=== PATIENT | female | born 1945 | race Caucasian/White ===

== ENCOUNTER 2016-10-31 07:30 | Day surgery (SDC) | payer MEDICARE ==
[2016-10-25 13:41] VITALS: BMI 23.2
[~2016-10-31 07:30] MED LIST: LACTATED RINGERS 1,000 ML IV SCH
[2016-10-31 08:08] VITALS: RESP 16; TEMP 97.9
[2016-10-31] MEDS ORDERED: LIDOCAINE 1% 20 ML VIAL (10MG/ML) FOR IV START INTRADERMA ONE (08:18)
[2016-10-31] MEDS ORDERED: PROPOFOL 10 MG/ML 20 ML VIAL IV ONE (08:43)
--- NOTE | 2016-10-31 08:54 | P.GSHP ---
History of Present Illness H&P Date: 10/31/16 Chief Complaint: Dysphagia This is a 71-year-old female who's had some issues with mild dysphagia. Patient a previous Abhi fundal plication. She has some trouble eating certain foods intermittently. She presents today for EGD with possible balloon dilatation - Constitutional Constitutional: Reports as per HPI Past Medical History Past Medical History: GERD/Reflux, Hyperlipidemia, Skin Disorder, Thyroid Disorder Additional Past Medical History / Comment(s): DIFFICULTY SWALLOWING History of Any Multi-Drug Resistant Organisms: None Reported Past Surgical History: Section, Cholecystectomy, Hysterectomy, Orthopedic Surgery Additional Past Surgical History / Comment(s): C/S x4, right rotator cuff repair , recent EGD. ABHI FUNDLOPLASTY Past Anesthesia/Blood Transfusion Reactions: No Reported Reaction Past Psychological History: No Psychological Hx Reported Smoking Status: Never smoker Past Alcohol Use History: None Reported Past Drug Use History: None Reported - Past Family History Mother Family Medical History: Cancer Brother(s) Family Medical History: Cancer Medications and Allergies Home Medications Medication Instructions Recorded Confirmed Type Hydrocortisone Cream 1 applic TOPICAL DAILY PRN 06/08/16 10/31/16 History [Hydrocortisone 2.5% Cream] Levothyroxine Sodium [Synthroid] 100 mcg PO DAILY 06/08/16 10/31/16 History cycloSPORINE [Restasis] 1 drop BOTH EYES BID 06/08/16 10/31/16 History metroNIDAZOLE 1% GEL [Metrogel 1%] 1 applicate TOPICAL DAILY PRN 06/08/16 History Allergies Allergy/AdvReac Type Severity Reaction Status Date / Time codeine AdvReac Rash/Hives Verified 10/25/16 13:34 Sulfa (Sulfonamide AdvReac Vomiting Verified 10/25/16 13:34 Antibiotics) Surgical - Exam Vital Signs Temp Pulse Resp BP Pulse Ox 97.9 F 68 16 145/74 97 10/31/16 08:06 10/31/16 08:06 10/31/16 08:06 10/31/16 08:06 10/31/16 08:06 - General well developed, no distress - Eyes PERRL - ENT normal pinna - Neck no masses - Respiratory normal expansion - Cardiovascular Rhythm: regular - Abdomen Abdomen: soft Assessment and Plan Plan: Dysphagia. We'll perform EGD with possible balloon dilatation.
--- NOTE | 2016-10-31 09:18 | P.OP ---
Date of Procedure: 10/31/16 Preoperative Diagnosis: Dysphagia Postoperative Diagnosis: Dysphagia Procedure(s) Performed: EGD Implants: Anesthesia: MAC Surgeon: Buddy Ochoa Pathology: none sent Condition: stable Disposition: PACU Indications for Procedure: Operative Findings: Description of Procedure: The patient's placed on the endoscopy table in the lateral position. She received IV sedation. The gastroscope some placed oropharynx and passed into the esophagus and into the stomach. The scope was then through the pylorus. First and second portion of duodenum. Normal. Scope was then brought back the antrum this appeared normal. Scope is retroflexed and the patient a previous fundal plication wrap which appeared to be in appropriate position. Due to the patient's symptoms of intermittent dysphagia a 20 mm balloon was placed at the level of the fundal plication wrap the balloon was held in position for 3 minutes. This was done sequentially 3 times. Scope was then withdrawn the distal esophagus appeared normal. The proximal esophagus. Normal. Scope was withdrawn for patient.
[2016-10-31 09:51] VITALS: BP 153/70; PULSE 72
== END 2016-10-31 10:32 | disposition home or self-care (01) ==
LOC: ORWHC2ENDO 07:30
PROVIDERS: ATTEND Surgery
DX: R13.10 Dysphagia, unspecified (principal); E07.9 Disorder of thyroid, unspecified; Z79.899 Other long term (current) drug therapy; Z88.2 Allergy status to sulfonamides; Z88.5 Allergy status to narcotic agent
CPT/HCPCS: 43249; J2704; C1726; 99153

== ENCOUNTER → 2016-11-13 | Outpatient (CLI) | payer MEDICARE ==
--- NOTE | 2016-11-13 10:54 | FL ---
Esophagram INDICATION: Post David, food sticking dysphasia Single contrast technique is utilized through the esophagus. Esophagus dilates to normal caliber has normal contour to the gastroesophageal junction. Post David changes are evident at the gastroesophageal junction. There is some moderate narrowing without comple te obstruction. Significant hesitancy is not identified. Tertiary contractions were during the examin ation compatible with presbyesophagus. Overhead radiographs appear unremarkable. IMPRESSIONS: 1. Presbyesophagus. 2. Post David fundoplication changes without significant obstruction. Some hesitancy passing through this region is evident however.
== END | disposition home or self-care (01) ==
LOC: RADFLWHC 08:14
PROVIDERS: ATTEND Surgery
DX: K22.8 Other specified diseases of esophagus (principal); Z98.890 Other specified postprocedural states
CPT/HCPCS: 74220

== ENCOUNTER 2016-11-21 10:44 | Day surgery (SDC) | payer MEDICARE ==
[2016-11-20 08:53] VITALS: BMI 22.8
[2016-11-21] MEDS ORDERED: LIDOCAINE 1% 20 ML VIAL (10MG/ML) FOR IV START SQ ONE (10:54)
[2016-11-21 10:58] VITALS: RESP 16; TEMP 97.7
[2016-11-21] MEDS ORDERED: LIDOCAINE 1% INJ 10MG/ML (20 ML MDV) ONE (12:17)
[2016-11-21] MEDS ORDERED: PROPOFOL 10 MG/ML 20 ML VIAL IV ONE (12:17)
--- NOTE | 2016-11-21 12:19 | P.GSHP ---
History of Present Illness H&P Date: 11/21/16 Chief Complaint: Intermittent dysphagia This a 71-year-old female referred from Dr. Chawla. Patient presents today for EGD and balloon dilatation patient has had complaints of intermittent dysphagia. She states she feels better after her last balloon dilatation. She' s had a previous Abhi fundal plication. The patient has had an upper GI which shows evidence of presbyesophagus without any obstruction of her GE junction. Past Medical History Past Medical History: GERD/Reflux, Hyperlipidemia, Skin Disorder, Thyroid Disorder Additional Past Medical History / Comment(s): DIFFICULTY SWALLOWING History of Any Multi-Drug Resistant Organisms: None Reported Past Surgical History: Section, Cholecystectomy, Hysterectomy, Orthopedic Surgery Additional Past Surgical History / Comment(s): C/S x4, right rotator cuff repair , recent EGD. ABHI FUNDLOPLASTY. EGD-10/31/16 Past Anesthesia/Blood Transfusion Reactions: No Reported Reaction Past Psychological History: No Psychological Hx Reported Smoking Status: Never smoker Past Alcohol Use History: None Reported Past Drug Use History: None Reported - Past Family History Mother Family Medical History: Cancer Brother(s) Family Medical History: Cancer Medications and Allergies Home Medications Medication Instructions Recorded Confirmed Type Hydrocortisone Cream 1 applic TOPICAL DAILY PRN 06/08/16 11/21/16 History [Hydrocortisone 2.5% Cream] Levothyroxine Sodium [Synthroid] 100 mcg PO DAILY 06/08/16 11/21/16 History cycloSPORINE [Restasis] 1 drop BOTH EYES BID 06/08/16 11/21/16 History metroNIDAZOLE 1% GEL [Metrogel 1%] 1 applicate TOPICAL DAILY PRN 06/08/16 History Allergies Allergy/AdvReac Type Severity Reaction Status Date / Time codeine AdvReac Rash/Hives Verified 11/20/16 08:47 Sulfa (Sulfonamide AdvReac Vomiting Verified 11/20/16 08:47 Antibiotics) Surgical - Exam Vital Signs Temp Pulse Resp BP Pulse Ox 97.7 F 77 16 143/78 100 11/21/16 10:57 11/21/16 10:57 11/21/16 10:57 11/21/16 10:57 11/21/16 10:57 - General well developed, no distress - Eyes PERRL - ENT normal pinna - Neck no masses - Respiratory normal expansion - Cardiovascular Rhythm: regular - Abdomen Abdomen: soft, non tender Assessment and Plan Plan: History of intermittent dysphagia. We'll perform EGD with balloon dilatation
--- NOTE | 2016-11-21 12:40 | P.OP ---
Date of Procedure: 11/21/16 Preoperative Diagnosis: Dysphagia Postoperative Diagnosis: Dysphagia Procedure(s) Performed: EGD with balloon dilatation of GE junction Anesthesia: MAC Surgeon: Buddy Ochoa Pathology: none sent Condition: stable Disposition: PACU Description of Procedure: The patient's placed on the endoscopy table in the lateral position. She received IV sedation. The gastroscope some placed oropharynx and passed into the esophagus and into the stomach. Scope was then placed through the pylorus. The first and second portion of duodenum appeared normal. The scope was then brought back the antrum and this appeared normal. Scope is retroflexed and the GE junction was visualized. The 20 mm balloon was placed across the GE junction. This was held in position for 3 minutes. No injury seen to the esophagus stomach. The balloon was then withdrawn. The scope was withdrawn. Patient top she will was sent to recovery in stable condition.
[2016-11-21 13:04] VITALS: BP 158/87; PULSE 79
== END 2016-11-21 13:28 | disposition home or self-care (01) ==
LOC: ORWHC2ENDO 10:44
PROVIDERS: ATTEND Surgery
DX: R13.10 Dysphagia, unspecified (principal); E07.9 Disorder of thyroid, unspecified; L98.9 Disorder of the skin and subcutaneous tissue, unspecified; Z79.899 Other long term (current) drug therapy
CPT/HCPCS: 43249; J2001; J2704; C1726; 99153

== ENCOUNTER 2017-01-25 08:47 | Day surgery (SDC) | payer MEDICARE ==
[2017-01-24 09:54] VITALS: BMI 22.3
[2017-01-25 09:01] VITALS: TEMP 97
[2017-01-25] MEDS ORDERED: LIDOCAINE 1% 20 ML VIAL (10MG/ML) FOR IV START INTRADERMA ONE (09:24)
[2017-01-25] MEDS ORDERED: PROPOFOL 10 MG/ML 20 ML VIAL IV ONE (10:02)
--- NOTE | 2017-01-25 10:16 | P.GSHP ---
History of Present Illness H&P Date: 01/25/17 Chief Complaint: Dysphagia This is a 71-year-old female who's had intermittent problems with dysphagia. Patient presents today for EGD with possible balloon dilatation. She's had a previous balloon dilatation which did help her dysphagia. Past Medical History Past Medical History: GERD/Reflux, Hyperlipidemia, Skin Disorder, Thyroid Disorder Additional Past Medical History / Comment(s): Rosacea. DIFFICULTY SWALLOWING History of Any Multi-Drug Resistant Organisms: None Reported Past Surgical History: Section, Cholecystectomy, Hysterectomy, Orthopedic Surgery Additional Past Surgical History / Comment(s): C/S x4, right rotator cuff repair , recent EGD. ABHI [id number]. EGD-10/31/16 with dilatation Past Anesthesia/Blood Transfusion Reactions: No Reported Reaction Past Psychological History: No Psychological Hx Reported Smoking Status: Never smoker Past Alcohol Use History: None Reported Past Drug Use History: None Reported - Past Family History Mother Family Medical History: Cancer Brother(s) Family Medical History: Cancer Medications and Allergies Home Medications Medication Instructions Recorded Confirmed Type Hydrocortisone Cream 1 applic TOPICAL DAILY PRN 06/08/16 01/24/17 History [Hydrocortisone 2.5% Cream] Levothyroxine Sodium [Synthroid] 100 mcg PO QAM 06/08/16 01/24/17 History cycloSPORINE [Restasis] 1 drop BOTH EYES BID 06/08/16 01/24/17 History metroNIDAZOLE 1% GEL [Metrogel 1%] 1 applicate TOPICAL DAILY PRN 06/08/16 History Allergies Allergy/AdvReac Type Severity Reaction Status Date / Time codeine Allergy Rash/Hives Verified 01/25/17 08:52 Sulfa (Sulfonamide AdvReac Vomiting Verified 01/25/17 08:52 Antibiotics) Surgical - Exam Vital Signs Temp Pulse Resp BP Pulse Ox 97.0 F L 62 16 121/75 98 01/25/17 09:00 01/25/17 09:00 01/25/17 09:00 01/25/17 09:00 01/25/17 09:00 - General well developed, no distress - Eyes PERRL - ENT normal pinna - Neck no masses - Respiratory normal expansion - Cardiovascular Rhythm: regular - Abdomen Abdomen: soft, non tender Assessment and Plan Plan: Dysphagia. We'll perform EGD with balloon dilation.
--- NOTE | 2017-01-25 10:34 | P.OP ---
Date of Procedure: 01/25/17 Preoperative Diagnosis: Dysphagia Postoperative Diagnosis: Dysphagia Procedure(s) Performed: EGD with balloon dilatation of GE junction Anesthesia: MAC Surgeon: Buddy Ochoa Pathology: none sent Condition: stable Disposition: PACU Description of Procedure: The patient's placed on the endoscopy table in the lateral position. She received IV sedation. The gastroscope placed oropharynx passed into the esophagus and into the stomach. The scope was then placed through the pylorus. The first and second portion of the duodenum appeared normal. The scope was then brought back the antrum this appeared normal. The scope was then retroflexed and there was no evidence of a hiatal hernia. At the GE junction a 20 mm balloon was placed and this was dilated and held in position for 3 minutes. This was done sequentially 3 times. The distal esophagus. Normal. The proximal esophagus. Normal. Scope was then withdrawn from patient.
[2017-01-25 11:51] VITALS: BP 138/84; PULSE 60; RESP 16
== END 2017-01-25 11:49 | disposition home or self-care (01) ==
LOC: ORWHC2ENDO 08:47
PROVIDERS: ATTEND Surgery
DX: R13.10 Dysphagia, unspecified (principal); R13.19 Other dysphagia; E07.9 Disorder of thyroid, unspecified; K21.9 Gastro-esophageal reflux disease without esophagitis; L71.9 Rosacea, unspecified; E78.5 Hyperlipidemia, unspecified; Z88.5 Allergy status to narcotic agent; Z88.2 Allergy status to sulfonamides; Z79.899 Other long term (current) drug therapy
CPT/HCPCS: 43249; J2704; C1726; 44799

== ENCOUNTER → 2017-08-08 | Day surgery (SDC) | payer MEDICARE ==
[2017-08-06 09:26] VITALS: BMI 21.9
[2017-08-08 14:01] VITALS: BP 160/81; PULSE 66; RESP 16; TEMP 98.1
--- NOTE | 2017-08-10 09:23 | PCN ---
PROCEDURE NOTE DATE OF SERVICE: 08/08/2017. PROCEDURE PERFORMED: High resolution impedance esophageal manometry. DESCRIPTION OF PROCEDURE: After informed consent was obtained from the patient, she was brought to the Endoscopy Unit. The esophageal manometry catheter was placed in the external nostril and was gently advanced into the stomach and the esophageal manometry was performed by Endoscopy nurse, Lizzette. The following are the study results: 1. Lower esophageal sphincter, proximal location 39 cm, distal location 43 cm, total lower esophageal sphincter length is 4 cm. IRP (Integral residual pressure) gross is 18 mmHg. EGJ phenotype type I. 2. Lower esophageal body. Wickes classification, mean DCI 2315 mmHg, normal DCI 100%. Pattern classification, normal esophageal motility. 3. Impedance study - Complete liquid transit time 80%, complete viscus transit time 90%. INTERPRETATION: The esophageal impedance manometry shows adequate relaxation of the lower esophagus sphincter with wet swallow and the motility pattern in the esophageal body is within normal limits. There is no evidence of esophageal dysmotility. There is good bolus transmit throughout the entire procedure. MMODL / IJN: [id number] /
--- NOTE | 2017-08-20 07:23 | CDI ---
Dr. Clinton Acosta Please clarify a diagnosis, symptom or reason for performing a high resolution impedance esophageal manometry on this patient. This information cannot be found within the current documentation for this stay. Please answer this query in an addendum to the procedure note. If you have any questions, please contact Anna Miramontes, [employer] manager, at [phone]. Thank you for your time. KRISHNA Hines
--- NOTE | 2017-08-22 07:23 | CDI ---
Dr. Clinton Acosta Please clarify a diagnosis, symptom or reason for performing a high resolution impedance esophageal manometry on this patient. This information cannot be found documented by a physician within the current documentation for this stay. Please answer this query in an addendum to the procedure note. If you have any questions, please contact Anna Miramontes, manager [employer], at [phone]. Thank you for your time. KRISHNA Hines
--- NOTE | 2017-08-22 08:20 | PCN ---
PROCEDURE NOTE ADDENDUM TO THE PROCEDURE NOTE: Procedure performed was high-resolution impedance esophageal manometry. DATE OF SERVICE: 08/08/2017 PREOPERATIVE DIAGNOSES: Dysphagia and gastroesophageal reflux symptoms. MMVINODL / IJN: [id number] /
== END ==
LOC: ORWHC2ENDO 13:49
PROVIDERS: ATTEND Internal Medicine Gastroenterology
DX: K21.9 Gastro-esophageal reflux disease without esophagitis (principal); R13.10 Dysphagia, unspecified
CPT/HCPCS: 91010

== ENCOUNTER → 2018-01-22 | Outpatient (CLI) | payer MEDICARE ==
--- NOTE | 2018-01-22 13:02 | BD ---
EXAMINATION TYPE: MG DEXA axial skeleton. DATE OF EXAM: 01/22/2018 CLINICAL HISTORY: Z91.89 Height: 61 inches Weight: 111 FRAX RISK QUESTIONS: Alcohol (3 or more units per day): no Family History (Parent hip fracture): no Glucocorticoids (More than 3mos): inhaler very very rarely (Ex: prednisone, prednisolone, methylprednisolone, dexamethasone, and hydrocortisone). History of Fracture in Adulthood: foot Secondary Osteoporosis: 1. Type 1 Diabetes: no 2. Hyperthyroidism: no 3. Menopause before 45: yes 4. Malnutrition: unsure 5. Chronic liver disease: no Rheumatoid Arthritis: no Current Tobacco Use: no RISK FACTORS HISTORY OF: Family History of Osteoporosis: yes, mother & 2 sisters Active: yes Diet low in dairy products/other sources of calcium: no Postmenopausal woman: yes Take estrogen and/or progesterone medications: not now How long: many years...stopped when in early 60's Lost more than 2 inches in height since high school: no Frequent falls: no Poor Health: no Hyperparathyroidism: no Adrenal Insufficiency: no MEDICATIONS: Prednisone or other steroids: inhaler but rarely rarely uses Thyroid Medications: yes Which medication: Levothyroxine How Long: more than 5 years...perhaps 10 years Osteoporosis Medications: no Additional Medications: allergy meds-Flonase Additional History: hysterectomy about age 35; weight loss after hiatal hernia surgery about a year a go EXAM MEASUREMENTS: Bone mineral densitometry was performed using the [employer]. Bone mineral density as measured about the Lumbar spine is: ----- L1-L4(G/cm2): 1.145 T Score Values are as follows: ----- L2: -0.6 ----- L3: 0.0 ----- L4: -0.1 ----- L1-L4: -0.3 Bone mineral density not previously done at this facility- previous study done at physician office Bone mineral density about the R hip (g/cm2): 0.851 Bone mineral density about the L hip (g/cm2): 0.857 T Score values are as follows: -----R Neck: -1.3 -----L Neck: -1.3 -----R Total: -1.0 -----L Total: -1.2 Bone mineral density not previously done at this facility- previous at physician office IMPRESSION: Osteopenia (T Score between -2.5 and -1). There is slightly increased risk of fracture and the patient may be considered for treatment. Re-Screen 2-5 years. NOTE: T-SCORE=SD OF THE YOUNG ADULT MEAN.
== END | disposition home or self-care (01) ==
LOC: RADBDWWP 09:07
PROVIDERS: ATTEND Family Medicine
DX: M85.88 Other specified disorders of bone density and structure, other site (principal); Z91.89 Other specified personal risk factors, not elsewhere classified
CPT/HCPCS: 77080

== ENCOUNTER → 2018-03-28 | Outpatient (CLI) | payer MEDICARE ==
--- NOTE | 2018-03-28 13:53 | MM ---
Reason for exam: additional evaluation requested from prior study. History: Patient is postmenopausal. Excisional biopsy of the left breast. Took estrogen for 15 years. Physical Findings: Nurse did not find any significant physical abnormalities on exam. MG 3D Diag Mammo W/Cad SOPIHA Bilateral CC and MLO view(s) were taken. The breast tissue is extremely dense which could obscure a lesion on mammography. Benign appearing bilateral calcifications. No suspicious abnormality. Left post surgical change. These results were verbally communicated with the patient and result sheet given to the patient on 03/28/18. ASSESSMENT: Benign, BI-RAD 2 RECOMMENDATION: Routine screening mammogram of both breasts in 1 year.
== END | disposition home or self-care (01) ==
LOC: RADMAMWWP 09:36
PROVIDERS: ATTEND Surgery
DX: R92.8 Other abnormal and inconclusive findings on diagnostic imaging of breast (principal)
CPT/HCPCS: 77066; G0279; 77062

== ENCOUNTER → 2019-01-14 | Outpatient (CLI) | payer MEDICARE ==
--- NOTE | 2019-01-14 08:56 | US ---
EXAMINATION TYPE: US duplex aorta DATE OF EXAM: 01/14/2019 COMPARISON: NONE CLINICAL HISTORY: I71.4 AAA,. EXAM MEASUREMENTS: Abdominal Aorta: Proximal: 2.3 Mid: 1.6 Distal: 1.4 Bifurcation: Rt: 1.1cm, Lt: 1.1cm IMPRESSION: No sonographic evidence of abdominal aortic aneurysm in the visualized portions of the ab dominal aorta.
--- NOTE | 2019-01-14 10:02 | US ---
EXAMINATION TYPE: US thyroid st tissue head/neck DATE OF EXAM: 01/14/2019 COMPARISON: NONE CLINICAL HISTORY: E04.1 Thyroid nodule. GLAND SIZE: Right Lobe: 2.5 x 0.9 x 0.5 cm Overall Parenchyma: heterogenous Left Lobe: 2.2 x 0.8 x 0.7 cm Overall Parenchyma: heterogeneous Isthmus Thickness: 1.7 cm NODULES RIGHT: # of nodules measured on right: 0 LEFT: # of nodules measured on left: 0 ISTHMUS: # of nodules measured in the isthmus: 0 Bilateral neck scanned, no evidence of lymphadenopathy. IMPRESSION: The thyroid gland is slightly atrophic and heterogenous with no discrete measurable nodul e. Atrophy can be seen in chronic thyroiditis.
== END | disposition home or self-care (01) ==
LOC: RADUSWWP 08:09
PROVIDERS: ATTEND Family Medicine
DX: I71.4 Abdominal aortic aneurysm, without rupture (principal); E03.4 Atrophy of thyroid (acquired); E04.1 Nontoxic single thyroid nodule
CPT/HCPCS: 76536; 93979

== ENCOUNTER → 2019-03-31 | Outpatient (CLI) | payer MEDICARE ==
--- NOTE | 2019-04-01 11:41 | MM ---
Reason for exam: additional evaluation requested from prior study. Last mammogram was performed 1 year ago. History: Patient is postmenopausal. Excisional biopsy of the left breast. Took estrogen for 15 years. Physical Findings: Nurse did not find any significant physical abnormalities on exam. MG 3D Diag Mammo W/Cad SOPHIA Bilateral CC and MLO view(s) were taken. Prior study comparison: March 28, 2018, bilateral MG 3d diag mammo w/cad SOPHIA. The breast tissue is extremely dense which could obscure a lesion on mammography. Benign appearing bilateral calcifications. No suspicious abnormality on the left. New posterior depth central focal asymmetry 7cm from nipple, this resolves on spot MLO and ML but subtly persists on spot CC. Precautionary ultrasound will be performed. Post surgical change on the left. These results were verbally communicated with the patient and result sheet given to the patient on 03/31/19. ASSESSMENT: Incomplete: need additional imaging evaluation, BI-RAD 0 RECOMMENDATION: Ultrasound of the right breast. (lower outer quadrant)
--- NOTE | 2019-04-01 11:43 | USB ---
Reason for exam: additional evaluation requested from abnormal screening. History: Patient is postmenopausal. Excisional biopsy of the left breast. Took estrogen for 15 years. US Breast Limited RT Right limited breast ultrasound including focal area of concern, retroareolar and axilla demonstrates a 0.4 x 0.4 x 0.3cm solid lesion at 5:30-6:00, correlates with mammographic finding. Suspicious, biopsy recommended. These results were verbally communicated with the patient and result sheet given to the patient on 03/31/19. ASSESSMENT: Suspicious, BI-RAD 4 RECOMMENDATION: Ultrasound core biopsy of the right breast. Called with mammographic findings and has scheduled an appointment for the patient for 04/25/19 at 4:[address] Peralta. Biopsy scheduled for 04/28/19 at 12:20. PRELIMINARY REPORT CALLED AND FAXED TO DR. PERALTA ON 04/01/19.
== END ==
LOC: RADMAMWWP 06:58
PROVIDERS: ATTEND Surgery
DX: R92.8 Other abnormal and inconclusive findings on diagnostic imaging of breast (principal)
CPT/HCPCS: 77066; 76642; G0279; 77062

== ENCOUNTER → 2019-04-25 | Outpatient (CLI) | payer MEDICARE ==
[2019-04-25 16:22] VITALS: BP 131/76; PULSE 77; RESP 18; TEMP 97.9; BMI 20.9
--- NOTE | 2019-04-25 17:07 | P.GSHP ---
History of Present Illness H&P Date: 04/25/19 Chief Complaint: abnormal mammogram and ultrasound Makenna is a 73 year old white female who on a routine mammogram was noted to have an area of concern in the right breast. An ultrasound confirmed a lesion at 5:30 to 6:00 for which core biopsy was recommended. These studies were done on 03-31-19. This was a routine screening mammogram, the patient does not feel anything in her breast. No trauma or infection in the breast. She had had bilateral breast biopsies which were all negative for cancer. Family History: 1. brother: lung cancer 2. mother: lung cancer Hormonal History: menarche: 15 , raised 7, first child born at 17, breast fed: no menopause: hysterectomy at 33, did not take ovaries BCP: 10 years hormones: 15 years, off for 15 years Past Surgical History: 1. rotator cuff 2. gallbladder 3. hiatal hernia 4. tonsil 5. breast biopsy bilateral 6. dental implants bone removed from hip Past Medical History: 1. hypothyroid 2. rosacia 3. dry eyes 4. flonase for allergies Social History: smoke:none, second hand smoke smoked but stopped 30 years ago alcohol: none drugs: none - Constitutional Constitutional: Reports sweats - EENT Comment: glasses Eyes: denies blurred vision, denies pain Ears: deny: decreased hearing, tinnitus Ears, nose, mouth and throat: Denies headache, Denies sore throat - Breasts Breasts: bilateral: as per HPI - Cardiovascular Cardiovascular: Denies chest pain, Denies shortness of breath - Respiratory Respiratory: Denies cough, Denies 7 - Gastrointestinal Gastrointestinal: Denies abdominal pain, Denies diarrhea, Denies nausea, Denies vomiting - Genitourinary (Female) Genitourinary: Denies dysuria, Denies hematuria - Menstruation Menstruation: Reports post hysterectomy - Musculoskeletal Comment: arthritis - Integumentary Comment: rosacia - Neurological Neurological: Denies numbness, Denies weakness - Psychiatric Psychiatric: Denies anxiety, Denies depression - Endocrine Comment: hypothyroid - Hematologic/Lymphatic Comment: none - Allergic/Immunologic Allergic/Immunologic: Reports as per HPI, Reports seasonal allergies Past Medical History Past Medical History: GERD/Reflux, Osteoarthritis (OA), Skin Disorder, Thyroid Disorder Additional Past Medical History / Comment(s): Rosacea, varicose veins, hx "PRE" skin cancer History of Any Multi-Drug Resistant Organisms: None Reported Past Surgical History: Section, Cholecystectomy, Hysterectomy, Orthopedic Surgery Additional Past Surgical History / Comment(s): C/S x4, right rotator cuff repair, ABHI FUNDLOPLASTY, EGD-10/31/16 with dilatation, left knee surgery Past Anesthesia/Blood Transfusion Reactions: Motion Sickness Past Psychological History: No Psychological Hx Reported Smoking Status: Never smoker Past Alcohol Use History: None Reported Past Drug Use History: None Reported - Past Family History Mother Family Medical History: Cancer Additional Family Medical History / Comment(s): LUNG Brother(s) Family Medical History: Cancer Additional Family Medical History / Comment(s): LUNG Medications and Allergies Home Medications Medication Instructions Recorded Confirmed Type Hydrocortisone Cream 1 applic TOPICAL DAILY PRN 06/08/16 04/25/19 History [Hydrocortisone 2.5% Cream] cycloSPORINE [Restasis] 1 drop BOTH EYES BID 06/08/16 04/25/19 History metroNIDAZOLE 1% GEL [Metrogel 1%] 1 applicate TOPICAL DAILY PRN 06/08/16 04/25/19 History Cyanocobalamin (Vitamin B-12) 5,000 mcg PO DAILY 08/06/17 04/25/19 History [Vitamin B12] Fluticasone Nasal [place] [Flonase 1 spray EA NOSTRIL BID PRN 08/06/17 04/25/19 History Nasal [place]] Multivitamins, Thera [Multivitamin 1 tab PO DAILY 08/06/17 04/25/19 History (formulary)] Cholecalciferol [Vitamin D3 (25 1,000 units PO DAILY 04/08/19 04/25/19 History Mcg = 1000 Iu)] Levothyroxine Sodium 88 mcg PO DAILY 04/08/19 04/25/19 History Allergies Allergy/AdvReac Type Severity Reaction Status Date / Time codeine Allergy Rash/Hives Verified 04/25/19 16:22 Sulfa (Sulfonamide AdvReac Vomiting Verified 04/25/19 16:22 Antibiotics) Surgical - Exam Vital Signs Temp Pulse Resp BP Pulse Ox 97.9 F 77 18 131/76 98 04/25/19 16:16 04/25/19 16:16 04/25/19 16:16 04/25/19 16:16 06/28/19 16:16 - General well developed, well nourished, no distress - Eyes normal ocular movement - ENT no hearing loss, no congestion - Neck no masses, trachea midline - Respiratory normal respiratory effort, clear to auscultation - Cardiovascular Rhythm: regular Heart Sounds: normal: S1, S2 - Abdomen Abdomen: soft, non tender, no guarding, no rigid, no rebound - Neurologic no disoriented, no combative - Musculoskeletal normal gait - Psychiatric oriented to time, oriented to person, oriented to place, speech is normal, memory intact breast exam: right breast: multipositional exam no masses, fibrocystic changes right axilla: no adenopathy of concern left breast:multipositional exam no masses, fibrocystic changes left axilla: no adenopathy of concern Results mammogram reviewed Assessment and Plan Assessment: Impression: 1. hypothyroid 2. rosacia 3. dry eyes 4. flonase for allergies 5. abnormal mammogram and ultrasound of the right breast Plan: 1. ultrasound core biopsy of the right breast 2. medical management of medical problems 3. follow up after ultrasound biopsy of the right breast CC: Dr. Lang Soto
== END ==
LOC: WWCWWP 15:43
PROVIDERS: ATTEND Surgery
DX: Z53.9 Procedure and treatment not carried out, unspecified reason (principal)

== ENCOUNTER → 2019-04-28 | Day surgery (SDC) | payer MEDICARE ==
[2019-04-28 11:30] VITALS: BP 130/79; PULSE 66; RESP 16; TEMP 98.1; BMI 20.7
--- NOTE | 2019-04-28 13:56 | USB ---
EXAMINATION TYPE: US discontinued breast bx RT, MG discontinued stereo core RT DATE OF EXAM: 04/28/2019 COMPARISON: Mammogram dated 03/31/2019 and 03/28/2018 CLINICAL HISTORY: R92.8 Abn guerline. PROCEDURE: The new focal asymmetry of the right breast at posterior depth with possible sonographic correlation with not reproducible on ultrasound by 2 sonographers, nor by myself, Dr. Durant. This was discussed wi th the patient and attempt at localizing under stereotactic guidance was performed. The patient was p laced in the CC position in the far posterior depth retromammary fat plane was explored with visualiz ation of the pectoralis muscle on multiple images. However no persistent abnormality corresponding to the mammographic focal asymmetry was able to be reproduced. ML and MLO images were also attempted wi thout reproducible abnormality. This was discussed with the patient and six-month follow-up mammogram will be performed. The patient was also offered needle localization. The patient declined at this ti me. IMPRESSION: Unsuccessful sonographic localization for biopsy and unsuccessful attempt at stereotacti c guided core needle biopsy. Six-month follow-up mammogram will be performed.
== END ==
LOC: RADUSWWP 11:10
PROVIDERS: ATTEND Surgery
DX: R92.8 Other abnormal and inconclusive findings on diagnostic imaging of breast (principal); Z53.8 Procedure and treatment not carried out for other reasons; Z88.5 Allergy status to narcotic agent; Z88.2 Allergy status to sulfonamides

== ENCOUNTER → 2019-05-14 | Outpatient (CLI) | payer MEDICARE ==
--- NOTE | 2019-06-06 10:01 | P.STRESS ---
- Stress Test Note Stress Test Results/Findings: Exam Performed: Exam Date: Reason for Exam: Height: Weight: Protocol: Stage: Duration of Exercise: Resting Heart Rate: Resting Blood Pressure: Maximum Achieved Heart Rate: Maximum Achieved Blood Pressure: 85% PMHR: 100% PMHR: METS: Technologist Comment: Stress Test Results/Findings: Event monitor shows sinus rhythm occasional PVCs sinus tachycardia and short runs of paroxysmal atrial tachycardia No pauses
--- NOTE | 2019-06-06 14:54 | EM ---
Results/Findings: Event monitor shows sinus rhythm occasional PVCs sinus tachycardia and short runs of paroxysmal atrial tachycardia No pauses MTDD
== END | disposition home or self-care (01) ==
LOC: RADECHMAIN 12:19
PROVIDERS: ATTEND Family Medicine
DX: I47.1 Supraventricular tachycardia (principal); I49.3 Ventricular premature depolarization
CPT/HCPCS: 93270

== ENCOUNTER → 2019-08-06 | Outpatient (CLI) | payer MEDICARE ==
--- NOTE | 2019-08-06 12:24 | ECHOF ---
Referral Reason:I47.1 Supraventricular tachycardia MEASUREMENTS -------- HEIGHT: 154.9 cm WEIGHT: 49.9 kg BP: 119/59 RVIDd: 3.3 cm (< 3.3) IVSd: 1.0 cm (0.6 - 1.1) LVIDd: 3.6 cm (3.9 - 5.3) LVPWd: 1.1 cm (0.6 - 1.1) IVSs: 1.3 cm LVIDs: 2.2 cm LVPWs: 1.5 cm LA Diam: 2.9 cm (2.7 - 3.8) LAESV Index (A-L): 26.71 ml/m Ao Diam: 2.6 cm (2.0 - 3.7) AV Cusp: 2.0 cm (1.5 - 2.6) MV EXCURSION: 13.254 mm (> 18.000) MV EF SLOPE: 67 mm/s (70 - 150) EPSS: 0.4 cm MV E [place]: 0.70 m/s MV DecT: 259 ms MV A [place]: 0.87 m/s MV E/A Ratio: 0.81 AR PHT: 620 ms RAP: 5.00 mmHg RVSP: 28.51 mmHg TAPSE: 18.22 mm FINDINGS -------- Sinus rhythm. This was a technically good study. The left ventricular size is normal. Left ventricular wall thickness is normal. Overall left vent ricular systolic function is normal with, an EF between 60 - 65 %. The diastolic filling pattern is normal for the age of the patient 11.64. The right ventricle is mildly enlarged. Normal LA size by volume 22+/-6 ml/m2. The right atrium is normal in size. Interatrial and interventricular septum intact. There is mild aortic regurgitation. Mild mitral regurgitation is present. Moderate tricuspid regurgitation present. Right ventricular systolic pressure is normal at < 35 mmH g. Trace/mild (physiologic) pulmonic regurgitation. The aortic root size is normal. Normal inferior vena cava with normal inspiratory collapse consistent with estimated right atrial pre ssure of 5 mmHg. There is no pericardial effusion. CONCLUSIONS -------- 1. Sinus rhythm. 2. This was a technically good study. 3. The left ventricular size is normal. 4. Left ventricular wall thickness is normal. 5. Overall left ventricular systolic function is normal with, an EF between 60 - 65 %. 6. The diastolic filling pattern is normal for the age of the patient 11.64 7. The right ventricle is mildly enlarged. 8. Normal LA size by volume 22+/-6 ml/m2. 9. The right atrium is normal in size. 10. Interatrial and interventricular septum intact. 11. There is mild aortic regurgitation. 12. Mild mitral regurgitation is present. 13. Moderate tricuspid regurgitation present. 14. Right ventricular systolic pressure is normal at < 35 mmHg. 15. Trace/mild (physiologic) pulmonic regurgitation. 16. The aortic root size is normal. 17. Normal inferior vena cava with normal inspiratory collapse consistent with estimated right atrial pressure of 5 mmHg. 18. There is no pericardial effusion. LENS EDGE GRINDER MACHINE: Denice Sebastian RDCS
--- NOTE | 2019-08-06 14:19 | EST ---
EXERCISE STRESS AGE: 73 SEX: F HT: 61" WT: 110 PROTOCOL: Gerardo Stress Test STAGE: 3 DURATION OF EXERCISE: 9:00 HEART RATE REST: 59 BLOOD PRESSURE REST: 143/76 MAXIMUM HEART RATE ACHIEVED: 126 MAXIMUM BLOOD PRESSURE: 158/90 85% MPHR: 125 100% MPHR: 147 METS: 10.5 INDICATIONS: SVT CLINICAL INFORMATION: Patient was exercised for a total period of 9 minutes. The peak heart rate of 126 was achieved. Maximum blood pressure of 158/90 mmHg was noted. Resting EKG shows normal sinus rhythm with normal MD interval and QRS duration and normal ST-T waves. No ST- segment depression suggestive of ischemia was noted. Patient did not complain of any chest pain during the test. FINAL IMPRESSION: This exercise test is not suggestive of ischemia. Patient's exercise tolerance is normal. The patient did not complain of any anginal pain during the test. MMODL / IJN: [id number] /
== END | disposition home or self-care (01) ==
LOC: RADECHMAIN 08:17
PROVIDERS: ATTEND Family Medicine
DX: I08.3 Combined rheumatic disorders of mitral, aortic and tricuspid valves (principal); I47.1 Supraventricular tachycardia
CPT/HCPCS: 93017; 93306

== ENCOUNTER → 2019-11-10 | Outpatient (CLI) | payer MEDICARE ==
--- NOTE | 2019-11-10 08:26 | MM ---
Reason for exam: follow-up at short interval from prior study. Last mammogram was performed 7 months ago. History: Patient is postmenopausal. US discontinued breast bx RT of the right breast, April 28, 2019. MG discontinued stereo core RT of the right breast, April 28, 2019. Excisional biopsy of the left breast. Took estrogen for 15 years. Physical Findings: Nurse did not find any significant physical abnormalities on exam. MG 3D Diag Mammo W/Cad RT CC, MLO, and spot compression MLO view(s) were taken of the right breast. Prior study comparison: March 31, 2019, bilateral MG 3d diag mammo w/cad SOPHIA. March 28, 2018, bilateral MG 3d diag mammo w/cad SOPHIA. The breast tissue is extremely dense which could obscure a lesion on mammography. Benign appearing calcifications in the right breast. No suspicious abnormality. Previous central posterior depth asymmetry resolves. These results were verbally communicated with the patient and result sheet given to the patient on 11/10/19. ASSESSMENT: Benign, BI-RAD 2 RECOMMENDATION: Routine screening mammogram of both breasts in 6 months. Back on schedule for March 2020.
== END | disposition home or self-care (01) ==
LOC: RADMAMWWP 07:02
PROVIDERS: ATTEND Surgery
DX: R92.8 Other abnormal and inconclusive findings on diagnostic imaging of breast (principal)
CPT/HCPCS: 77065; G0279; 77061

== ENCOUNTER 2019-12-02 10:18 | Emergency (ER) | payer MEDICARE ==
[2019-12-02 10:43] VITALS: TEMP 98.3
[2019-12-02] MEDS ORDERED: SODIUM CHLORIDE 0.9% 500 ML 500 ML IV STA (11:02)
[2019-12-02] MEDS ORDERED: DIAZEPAM 5 MG/ML 2 ML INJ IVP STA (11:03)
[2019-12-02] MEDS ORDERED: MECLIZINE 25 MG TAB PO STA (11:03)
--- NOTE | 2019-12-02 11:13 | ED ---
General Adult HPI - General Chief complaint: Dizziness Stated complaint: Dizziness Time Seen by Provider: 12/02/19 10:20 Source: patient, RN notes reviewed, old records reviewed Mode of arrival: ambulatory Limitations: no limitations - History of Present Illness Initial comments: This is a 74-year-old female with a past medical history significant for v ertigo. Patient states since Sunday she has been having spinning and very difficult to walk because of the dizziness. Patient also is nauseated. Patient states she feels as though she is still moving not the room. Patient denies any headache patient denies numbness weakness. Patient denies any visual disturbance. Patient denies any chest pain palpitations difficulty breathing shortness of breath. Patient states her primary medical care doctor as prescribed her Antivert. Patient states he never did not help today. Patient states she has had no further workup. Patient denies any ringing in ears or any new deafness. - Related Data Home Medications Medication Instructions Recorded Confirmed Hydrocortisone Cream 1 applic TOPICAL DAILY PRN 06/08/16 04/28/19 [Hydrocortisone 2.5% Cream] cycloSPORINE [Restasis] 1 drop BOTH EYES BID 06/08/16 04/28/19 metroNIDAZOLE 1% GEL [Metrogel 1%] 1 applicate TOPICAL DAILY PRN 06/08/16 04/28/19 Cyanocobalamin (Vitamin B-12) 5,000 mcg PO DAILY 08/06/17 04/28/19 [Vitamin B12] Fluticasone Nasal [place] [Flonase 1 spray EA NOSTRIL BID PRN 08/06/17 04/28/19 Nasal [place]] Multivitamins, Thera [Multivitamin 1 tab PO DAILY 08/06/17 04/28/19 (formulary)] Cholecalciferol [Vitamin D3 (25 1,000 units PO DAILY 04/08/19 04/28/19 Mcg = 1000 Iu)] Levothyroxine Sodium 88 mcg PO DAILY 04/08/19 04/28/19 Previous Rx's Medication Instructions Recorded Meclizine [Antivert] 25 mg PO TID #20 tab 12/02/19 Allergies Allergy/AdvReac Type Severity Reaction Status Date / Time codeine Allergy Rash/Hives Verified 12/02/19 10:24 Sulfa (Sulfonamide AdvReac Vomiting Verified 12/02/19 10:24 Antibiotics) Review of Systems ROS Statement: Those systems with pertinent positive or pertinent negative responses have been documented in the HPI. ROS Other: All systems not noted in ROS Statement are negative. Past Medical History Past Medical History: Cancer, GERD/Reflux, Osteoarthritis (OA), Skin Disorder, Thyroid Disorder Additional Past Medical History / Comment(s): Rosacea, varicose veins, hx "PRE" skin cancer History of Any Multi-Drug Resistant Organisms: None Reported Past Surgical History: Section, Cholecystectomy, Hysterectomy, Orthopedic Surgery Additional Past Surgical History / Comment(s): C/S x4, right rotator cuff repair, ABHI FUNDLOPLASTY, EGD-10/31/16 with dilatation, left knee surgery Past Anesthesia/Blood Transfusion Reactions: Motion Sickness Past Psychological History: No Psychological Hx Reported Smoking Status: Never smoker Past Alcohol Use History: None Reported Past Drug Use History: None Reported - Past Family History Mother Family Medical History: Cancer Additional Family Medical History / Comment(s): LUNG Brother(s) Family Medical History: Cancer Additional Family Medical History / Comment(s): LUNG General Exam - General Exam Comments Initial Comments: GENERAL: Patient is well-developed and well-nourished. Patient is nontoxic and well- hydrated and is in mild distress. ENT: Neck is soft and supple. No significant lymphadenopathy is noted. Oropharynx is clear. Moist mucous membranes. Neck has full range of motion without elic iting any pain. EYES: The sclera were anicteric and conjunctiva were pink and moist. Extraocular movements were intact and pupils were equal round and reactive to light. Eyelids were unremarkable. PULMONARY: Unlabored respirations. Good breath sounds bilaterally. No audible rales rhonchi or wheezing was noted. CARDIOVASCULAR: There is a regular rate and rhythm without any murmurs gallops or rubs. ABDOMEN: Soft and nontender with normal bowel sounds. SKIN: Skin is clear with no lesions or rashes and otherwise unremarkable. NEUROLOGIC: Patient is alert and oriented x3. Cranial nerves II through XII are grossly intact. Motor and sensory are also intact. Normal speech, volume and content. Symmetrical smile. Finger to nose testing was normal bilaterally MUSCULOSKELETAL: Normal extremities with adequate strength and full range of motion. LYMPHATICS: No significant lymphadenopathy is noted PSYCHIATRIC: Normal psychiatric evaluation. Limitations: no limitations Course Vital Signs 12/02/19 12/02/19 10:19 10:40 Temperature 97.5 F L 98.3 F Pulse Rate 75 68 Respiratory 18 20 Rate Blood Pressure 166/92 134/75 O2 Sat by Pulse 99 100 Oximetry Medical Decision Making - Medical Decision Making EKG shows sinus rhythm with occasional PVC at 73 bpm MT interval 146 dresses 70 QTC is 46 QTC is 447. Patient's EKG shows no ST segment elevation or depression. CT of the brain shows no acute abnormality. After patient received Ativan or Valium she felt better but still had some symptoms of vertigo. Patient was then given some Reglan. - Lab Data Result diagrams: 12/02/19 10:34 12/02/19 10:34 Lab Results 12/02/19 12/02/19 12/02/19 Range/Units 10:34 10:34 10:34 WBC 7.5 (3.8-10.6) k/uL RBC 4.86 (3.80-5.40) m/uL Hgb 14.6 (11.4-16.0) gm/dL Hct 46.2 H (34.0-46.0) % MCV 95.0 (80.0-100.0) fL MCH 30.1 (25.0-35.0) pg MCHC 31.6 (31.0-37.0) g/dL RDW 13.2 (11.5-15.5) % Plt Count 323 (150-450) k/uL Neutrophils % 43 % Lymphocytes % 37 % Monocytes % 7 % Eosinophils % 8 % Basophils % 3 % Neutrophils # 3.2 (1.3-7.7) k/uL Lymphocytes # 2.7 (1.0-4.8) k/uL Monocytes # 0.5 (0-1.0) k/uL Eosinophils # 0.6 (0-0.7) k/uL Basophils # 0.2 (0-0.2) k/uL PT 10.0 (9.0-12.0) sec INR 1.0 (<1.2) APTT 22.9 (22.0-30.0) sec Sodium 139 (137-145) mmol/L Potassium 4.3 (3.5-5.1) mmol/L Chloride 103 (98-107) mmol/L Carbon Dioxide 28 (22-30) mmol/L Anion Gap 8 mmol/L BUN 23 H (7-17) mg/dL Creatinine 0.80 (0.52-1.04) mg/dL Est GFR (CKD-EPI)AfAm 84 (>60 ml/min/1.73 sqM) Est GFR (CKD-EPI)NonAf 73 (>60 ml/min/1.73 sqM) Glucose 101 H (74-99) mg/dL Calcium 10.1 (8.4-10.2) mg/dL Magnesium 2.0 (1.6-2.3) mg/dL Total Bilirubin 0.6 (0.2-1.3) mg/dL AST 34 (14-36) U/L ALT 18 (4-34) U/L Alkaline Phosphatase 67 (38-126) U/L Troponin I (0.000-0.034) ng/mL Total Protein 7.4 (6.3-8.2) g/dL Albumin 4.5 (3.5-5.0) g/dL 12/02/19 Range/Units 10:34 WBC (3.8-10.6) k/uL RBC (3.80-5.40) m/uL Hgb (11.4-16.0) gm/dL Hct (34.0-46.0) % MCV (80.0-100.0) fL MCH (25.0-35.0) pg MCHC (31.0-37.0) g/dL RDW (11.5-15.5) % Plt Count (150-450) k/uL Neutrophils % % Lymphocytes % % Monocytes % % Eosinophils % % Basophils % % Neutrophils # (1.3-7.7) k/uL Lymphocytes # (1.0-4.8) k/uL Monocytes # (0-1.0) k/uL Eosinophils # (0-0.7) k/uL Basophils # (0-0.2) k/uL PT (9.0-12.0) sec INR (<1.2) APTT (22.0-30.0) sec Sodium (137-145) mmol/L Potassium (3.5-5.1) mmol/L Chloride (98-107) mmol/L Carbon Dioxide (22-30) mmol/L Anion Gap mmol/L BUN (7-17) mg/dL Creatinine (0.52-1.04) mg/dL Est GFR (CKD-EPI)AfAm (>60 ml/min/1.73 sqM) Est GFR (CKD-EPI)NonAf (>60 ml/min/1.73 sqM) Glucose (74-99) mg/dL Calcium (8.4-10.2) mg/dL Magnesium (1.6-2.3) mg/dL Total Bilirubin (0.2-1.3) mg/dL AST (14-36) U/L ALT (4-34) U/L Alkaline Phosphatase (38-126) U/L Troponin I <0.012 (0.000-0.034) ng/mL Total Protein (6.3-8.2) g/dL Albumin (3.5-5.0) g/dL Disposition Clinical Impression: Vertigo Disposition: HOME SELF-CARE Condition: Good Instructions (If sedation given, give patient instructions): Vertigo (ED) Prescriptions: Meclizine [Antivert] 25 mg PO TID #20 tab Is patient prescribed a controlled substance at d/c from ED?: No Referrals: Abiodun Nguyen DO [Primary Care Provider] - 1-2 days Time of Disposition: 12:40
[2019-12-02 11:23] LABS: Basophils % (A) 3 %; Eosinophils % (A) 8 %; HCT 46.2 % (34.0-46.0); HGB 14.6 gm/dL (11.4-16.0); Lymphocytes % (A) 37 %; MCH 30.1 pg (25.0-35.0); MCHC 31.6 g/dL (31.0-37.0); Mean Platelet Volume 8.1; Monocytes % (A) 7 %; Neutrophils # (A) 3.2 k/uL (1.3-7.7); Neutrophils % (A) 43 %; Platelet Count 323 k/uL (150-450); RBC 4.86 m/uL (3.80-5.40); RDW 13.2 % (11.5-15.5); WBC 7.5 k/uL (3.8-10.6)
[2019-12-02 11:24] LABS: Basophils # (A) 0.2 k/uL (0-0.2); Eosinophils # (A) 0.6 k/uL (0-0.7); Lymphocytes # (A) 2.7 k/uL (1.0-4.8); Monocytes # (A) 0.5 k/uL (0-1.0)
[2019-12-02 11:31] LABS: Albumin 4.5 g/dL (3.5-5.0); Calcium 10.1 mg/dL (8.4-10.2); Potassium 4.3 mmol/L (3.5-5.1); Total Bilirubin 0.6 mg/dL (0.2-1.3); Total Protein 7.4 g/dL (6.3-8.2)
--- NOTE | 2019-12-02 11:34 | CT ---
EXAMINATION TYPE: CT brain wo con DATE OF EXAM: 12/02/2019 COMPARISON: None HISTORY: 74-year-old female with dizziness TECHNIQUE: Examination was done in axial plane without intravenous contrast. Coronal and sagittal r econstructions performed. CT DLP: 1024.4 mGycm Automated exposure control for dose reduction was used. FINDINGS: There is no evidence of acute intracranial hemorrhage, acute ischemic changes, mass, mass-effect, or extra-axial fluid collection. There is no effacement of cerebral sulci or basal subarachnoid cister ns. There is no hydrocephalus. There is no midline shift. Ward-white matter distinction is preserv ed. Moderate mucosal thickening throughout the ethmoid air cells. Left mastoid air cells are hypoplastic. Mild mucosal thickening sphenoid sinuses. Orbits and globes are intact. Partially empty sella incide ntally noted. Mild atherosclerosis. Calcifications within the carotid siphons. Mild patchy periventricular white matter hypodensities suggest changes of chronic small vessel ischem ic disease. IMPRESSION: Mild changes of chronic small vessel ischemic disease. No acute intracranial abnormality seen. Moderate chronic ethmoid sinus disease.
[2019-12-02 11:42] LABS: Partial Thromboplastin Time 22.9 sec (22.0-30.0)
[2019-12-02] MEDS ORDERED: METOCLOPRAMIDE 5 MG/ML 2 ML VIAL IVP STA (12:04)
[2019-12-02 13:18] VITALS: BP 130/74; PULSE 66; RESP 18
== END 2019-12-02 13:26 | disposition home or self-care (01) ==
LOC: EC 10:18
DX: R42 Dizziness and giddiness (principal); R11.0 Nausea; I49.3 Ventricular premature depolarization; E07.9 Disorder of thyroid, unspecified; Z79.890 Hormone replacement therapy; Z88.2 Allergy status to sulfonamides; Z88.5 Allergy status to narcotic agent; Z85.828 Personal history of other malignant neoplasm of skin
CPT/HCPCS: 36415; 93005; 80053; 83735; 84484; 85025; 85610; 85730; 70450; 99285; 96374; 96375; 96361; J2765; J3360

== ENCOUNTER → 2020-06-15 | Outpatient (CLI) | payer MEDICARE ==
--- NOTE | 2020-06-15 08:29 | BD ---
EXAMINATION TYPE: Axial Bone Density DATE OF EXAM: 06/15/2020 COMPARISON: 01/22/2018 CLINICAL HISTORY: Postmenopausal female Height: 60 IN Weight: 115 LBS FRAX RISK QUESTIONS: History of Fracture in Adulthood: LT FOOT FX AGE 70 Secondary Osteoporosis: 3. Menopause before 45: PARTIAL HYST AGE 33 RISK FACTORS HISTORY OF: Family History of Osteoporosis: YES MOTHER Active: YES Postmenopausal woman: PARTIAL HYST AGE 33 Take estrogen and/or progesterone medications: NOT NOW How long: AGE 33-53 MEDICATIONS: Thyroid Medications: YES Which medication: Levothyroxine How Long: SINCE 1996 Additional Medications: VIT D, LEVOTHYROXINE,HEART MED, MULTI VIT, CHRONIC EYE DISEASE MED, VIT B12 EXAM MEASUREMENTS: Bone mineral densitometry was performed using the [employer] System. Bone mineral density as measured about the Lumbar spine is: ----- L1-L4(G/cm2): 1.181 T Score Values are as follows: ----- L2: 0.1 ----- L3: 0.6 ----- L4: 0.1 ----- L1-L4: 0.0 Bone mineral density has: Increased 5.0% since study of: 01/19/2018 Bone mineral density about the R hip (g/cm2): 0.839 Bone mineral density about the L hip (g/cm2): 0.839 T Score values are as follows: -----R Neck: -1.4 -----L Neck: -1.4 -----R Total: -1.1 -----L Total: -1.3 Bone mineral density has: Decreased -1.5% since study of: 01/22/2018 IMPRESSION: Osteopenia (T Score between -2.5 and -1) remains present in both hips. There remains slightly increased risk of fracture and the patient may be considered for treatment. Re-Screen 2-5 years. NOTE: T-SCORE=SD OF THE YOUNG ADULT MEAN.
== END | disposition home or self-care (01) ==
LOC: RADBDWWP 07:04
PROVIDERS: ATTEND Family Medicine
DX: M85.88 Other specified disorders of bone density and structure, other site (principal); Z78.0 Asymptomatic menopausal state
CPT/HCPCS: 77080

== ENCOUNTER → 2020-06-15 | Outpatient (CLI) | payer MEDICARE ==
--- NOTE | 2020-06-15 09:43 | MM ---
Reason for exam: additional evaluation requested from prior study. Last mammogram was performed 7 months ago. History: Patient is postmenopausal. US discontinued breast bx RT of the right breast, April 28, 2019. MG discontinued stereo core RT of the right breast, April 28, 2019. Excisional biopsy of the left breast. Took estrogen for 15 years. Physical Findings: Nurse did not find any significant physical abnormalities on exam. MG 3D Diag Mammo W/Cad SOPHIA Bilateral CC and MLO view(s) were taken. Prior study comparison: November 10, 2019, right breast MG 3d diag mammo w/cad RT. March 31, 2019, bilateral MG 3d diag mammo w/cad SOPHIA. The breast tissue is extremely dense which could obscure a lesion on mammography. Finding: There are typically benign vascular, round calcifications in both breasts. Previous mammotome biopsy in the left breast. There is a chronic nodularity in the left breast. There is no discrete abnormality. Benign bilateral axillary lymph nodes. These results were verbally communicated with the patient and result sheet given to the patient on 06/15/20. ASSESSMENT: Benign, BI-RAD 2 RECOMMENDATION: Follow-up diagnostic mammogram of both breasts in 1 year.
== END | disposition home or self-care (01) ==
LOC: RADMAMWWP 07:01
PROVIDERS: ATTEND Surgery
DX: R92.8 Other abnormal and inconclusive findings on diagnostic imaging of breast (principal)
CPT/HCPCS: 77066; G0279; 77062

== ENCOUNTER → 2020-07-08 | Outpatient (CLI) | payer MEDICARE | END | disposition home or self-care (01) | LOC: LABWHC1 14:47 | PROVIDERS: ATTEND Family Medicine | DX: Z20.828 Contact with and (suspected) exposure to other viral communicable diseases (principal) | CPT/HCPCS: U0003; C9803 ==

== ENCOUNTER → 2020-12-20 | Outpatient (CLI) | payer MEDICARE ==
[2020-12-20 15:10] LABS: Basophils # (A) 0.04 X 10*3/uL (0.00-0.10); Basophils % (A) 0.6 %; Eosinophils # (A) 0.46 X 10*3/uL (0.04-0.35); Eosinophils % (A) 7.4 %; HCT 38.1 % (37.2-46.3); HGB 12.3 g/dL (12.0-15.0); Lymphocytes # (A) 2.11 X 10*3/uL (0.90-5.00); Lymphocytes % (A) 34.1 %; MCH 31.2 pg (27.0-32.0); MCHC 32.3 g/dL (32.0-37.0); MCV 96.7 fL (80.0-97.0); Mean Platelet Volume 10.9 fL (9.5-12.2); Monocytes # (A) 0.42 X 10*3/uL (0.20-1.00); Monocytes % (A) 6.8 %; Neutrophils # (A) 3.13 X 10*3/uL (1.80-7.70); Neutrophils % (A) 50.8 %; Platelet Count 239 X 10*3/uL (140-440); RBC 3.94 X 10*6/uL (4.10-5.20); RDW 13.7 % (11.5-14.5); WBC 6.18 X 10*3/uL (4.50-10.00)
[2020-12-20 15:25] LABS: Amylase 51 U/L (23-121); Lipase 39 U/L (14-63)
== END | disposition home or self-care (01) ==
LOC: LABWHC1 09:09
PROVIDERS: ATTEND Family Medicine
DX: R10.13 Epigastric pain (principal)
CPT/HCPCS: 36415; 82150; 83690; 85025

== ENCOUNTER → 2020-12-21 | Outpatient (CLI) | payer MEDICARE ==
[2020-12-21 13:50] LABS: African American GFR (CKD) >90 (>60 ml/min/1.73 sqM); Blood Urea Nitrogen 10 mg/dL (7-17); Non-African American GFR(CKD) 78 (>60 ml/min/1.73 sqM)
--- NOTE | 2020-12-21 14:58 | CT ---
CT angiogram of the abdomen HISTORY: Epigastric pain Helical acquisition obtained through the abdomen both before and during dynamic administration 100 cc [id number]-370 IV, three-dimensional reconstructions performed on an alternate workstation. Automated exposure control for dose reduction, DLP 571 mgy centimeters Lung bases are clear, posterior right diaphragmatic hernia contains fat. Postop changes are present a t the gastroesophageal junction. Some thickening the distal esophagus may be postoperative. The aorta shows normal enhancement in its visualized portions, common iliac arteries show normal ousmane dolores. Inferior mesenteric, superior mesenteric arteries and celiac axis are patent. Replaced common he patic artery to the superior mesenteric artery noted. There is some atheromatous change at the origin of the celiac axis. Renal arteries are patent. Nonobstructive punctate calculi are present within th e right kidney. Patient is post cholecystectomy. Degenerative disc changes are present in the visuali zed spine. IMPRESSION: Patent abdominal aorta. Postop changes. Nonobstructive right renal calculi.
== END | disposition home or self-care (01) ==
LOC: RADCTMAIN 12:55
PROVIDERS: ATTEND Family Medicine
DX: N20.0 Calculus of kidney (principal); Z98.890 Other specified postprocedural states; R10.13 Epigastric pain
CPT/HCPCS: 82565; 84520; 74175; 36415; Q9967

== ENCOUNTER 2021-02-24 10:45 | Day surgery (SDC) | payer MEDICARE ==
[2021-02-22 15:24] VITALS: BMI 22.3
[2021-02-24 11:56] VITALS: TEMP 96.4
[2021-02-24] MEDS ORDERED: LIDOCAINE 1% (10MG/ML) FOR IV START INTRADERMA ONE (12:08)
--- NOTE | 2021-02-24 12:33 | P.GSHP ---
History of Present Illness H&P Date: 02/24/21 Chief Complaint: Screening colonoscopy This a 75-year-old female presents today for screening colonoscopy. Patient denies a significant GI complaints.. Past Medical History Past Medical History: GERD/Reflux, Hypertension, Osteoarthritis (OA), Skin Disorder, Thyroid Disorder Additional Past Medical History / Comment(s): Rosacea, varicose veins, hx "PRE" skin cancer, "Heart flutters," H Pylori, Vertigo. History of Any Multi-Drug Resistant Organisms: None Reported Past Surgical History: Section, Cholecystectomy, Hysterectomy, Orthopedic Surgery Additional Past Surgical History / Comment(s): Section X4, right rotator cuff repair, ABHI FUNDLOPLASTY, EGD with dilatation, left knee surgery. Past Anesthesia/Blood Transfusion Reactions: No Reported Reaction, Motion Sickness Past Psychological History: No Psychological Hx Reported Smoking Status: Never smoker Past Alcohol Use History: None Reported Past Drug Use History: None Reported - Past Family History Mother Family Medical History: Cancer Additional Family Medical History / Comment(s): LUNG Brother(s) Family Medical History: Cancer Additional Family Medical History / Comment(s): LUNG Medications and Allergies Home Medications Medication Instructions Recorded Confirmed Type Hydrocortisone Cream 1 applic TOPICAL DAILY PRN 06/08/16 02/24/21 History [Hydrocortisone 2.5% Cream] cycloSPORINE [Restasis] 1 drop BOTH EYES BID 06/08/16 02/24/21 History metroNIDAZOLE 1% GEL [Metrogel 1%] 1 applicate TOPICAL DAILY PRN 06/08/16 02/24/21 History Cyanocobalamin (Vitamin B-12) 5,000 mcg PO DAILY 08/06/17 02/24/21 History [Vitamin B12] Fluticasone Nasal [place] [Flonase 1 spray EA NOSTRIL BID PRN 08/06/17 02/24/21 History Nasal [place]] Multivitamins, Thera [Multivitamin 1 tab PO DAILY 08/06/17 02/24/21 History (formulary)] Cholecalciferol [Vitamin D3 (25 1,000 units PO DAILY 04/08/19 02/24/21 History Mcg = 1000 Iu)] Levothyroxine Sodium 88 mcg PO DAILY 04/08/19 02/24/21 History Metoprolol Tartrate [Lopressor] 12.5 mg PO HS 12/12/19 02/24/21 History Meclizine [Antivert] 25 mg PO TID PRN 02/22/21 02/24/21 History Omeprazole 20 mg PO BID 02/22/21 02/24/21 History Allergies Allergy/AdvReac Type Severity Reaction Status Date / Time codeine Allergy Rash/Hives Verified 02/22/21 15:11 Sulfa (Sulfonamide AdvReac Vomiting Verified 02/22/21 15:11 Antibiotics) Surgical - Exam Vital Signs Temp Pulse BP Pulse Ox 96.4 F L 65 179/81 97 02/24/21 11:52 02/24/21 11:52 02/24/21 11:52 02/24/21 11:52 - General well developed, well nourished, no distress - Eyes PERRL - ENT normal pinna - Neck no masses - Respiratory normal expansion - Cardiovascular Rhythm: regular - Abdomen Abdomen: soft, non tender Assessment and Plan Assessment: We'll perform screening colonoscopy
--- NOTE | 2021-02-24 13:02 | P.OP ---
Date of Procedure: 02/24/21 Preoperative Diagnosis: Epigastric pain Screening colonoscopy Postoperative Diagnosis: Antral gastritis Diverticulosis Procedure(s) Performed: EGD Colonoscopy Anesthesia: MAC Surgeon: Buddy Ochoa Pathology: other (Antrum, esophagus) Condition: stable Disposition: PACU Description of Procedure: The patient's placed on the endoscopy table in the lateral position. She received IV sent. The gastroscope oropharynx passed in the esophagus and stomach. Scope was placed through the pylorus. The first and second portion of duodenum appeared normal. Scope was brought back the antrum this was mildly inflamed. It biopsies performed. Scope was retroflexed the remainder some appeared normal. The GE junction was at 40 cm the distal esophagus mild inflamed a biopsies performed. The proximal esophagus appeared normal. Scope was withdrawn for patient. Next digital rectal exam was performed which revealed no abdomen is. The flexible colonoscopy was then placed patient anus passed with colon. The scope could not placed in the right colon. Tortuous valve. This point scope withdrawn. The remainder of the transverse colon, descending colon appeared normal. In the; there was diverticular changes. Scope summer back the rectum this appeared normal. Scope withdrawn for patient.
[2021-02-24 13:14] VITALS: RESP 16
[2021-02-24 13:27] VITALS: BP 137/88; PULSE 73
== END 2021-02-24 14:09 | disposition home or self-care (01) ==
LOC: ORWHC2ENDO 10:45
PROVIDERS: ATTEND Surgery
DX: Z12.11 Encounter for screening for malignant neoplasm of colon (principal); K29.70 Gastritis, unspecified, without bleeding; K57.30 Diverticulosis of large intestine without perforation or abscess without bleeding; K63.89 Other specified diseases of intestine; K21.9 Gastro-esophageal reflux disease without esophagitis; I10 Essential (primary) hypertension; M19.90 Unspecified osteoarthritis, unspecified site; E07.9 Disorder of thyroid, unspecified; Z79.890 Hormone replacement therapy; Z79.899 Other long term (current) drug therapy; Z88.5 Allergy status to narcotic agent; Z88.2 Allergy status to sulfonamides; Z80.1 Family history of malignant neoplasm of trachea, bronchus and lung
CPT/HCPCS: 43239; 45378; 88305

== ENCOUNTER → 2021-06-17 | Outpatient (CLI) | payer MEDICARE ==
--- NOTE | 2021-06-17 10:53 | MM ---
Reason for exam: additional evaluation requested from prior study. Last mammogram was performed 1 year ago. History: Patient is postmenopausal. US discontinued breast bx RT of the right breast, April 28, 2019. MG discontinued stereo core RT of the right breast, April 28, 2019. Excisional biopsy of the left breast. Took hormonal contraceptives for 20 years. Took estrogen for 15 years. Physical Findings: Nurse did not find any significant physical abnormalities on exam. MG 3D Diag Mammo W/Cad SOPHIA Bilateral CC and MLO view(s) were taken. Prior study comparison: November 10, 2019, right breast MG 3d diag mammo w/cad RT. March 31, 2019, bilateral MG 3d diag mammo w/cad SOPHIA. The breast tissue is extremely dense which could obscure a lesion on mammography. Finding: There are typically benign vascular, dystrophic, round calcifications in both breasts. Previous mammotome biopsy in the left breast. There is no discrete abnormality. These results were verbally communicated with the patient and result sheet given to the patient on 06/17/21. ASSESSMENT: Benign, BI-RAD 2 RECOMMENDATION: Routine screening mammogram of both breasts in 1 year. Some consider bilateral ultrasound surveillance in patient with extremely dense fibroglandular tissue.
== END | disposition home or self-care (01) ==
LOC: RADMAMWWP 10:02
PROVIDERS: ATTEND Surgery
DX: R92.1 Mammographic calcification found on diagnostic imaging of breast (principal); Z78.0 Asymptomatic menopausal state; Z79.3 Long term (current) use of hormonal contraceptives
CPT/HCPCS: 77066; G0279; 77062

== ENCOUNTER → 2021-07-14 | Outpatient (CLI) | payer MEDICARE ==
[2021-07-14 16:07] VITALS: BP 135/84; PULSE 63; RESP 12; TEMP 98.2
--- NOTE | 2021-07-14 16:34 | P.PN ---
Subjective Progress Note Date: 07/14/21 Principal diagnosis: Fibrocystic breast changes Makenna is a 75 year old white female who on a routine mammogram was noted to have an area of concern in the right breast. An ultrasound confirmed a lesion at 5:30 to 6:00 for which core biopsy was recommended. These studies were done on 03-31-19. This was a routine screening mammogram, the patient does not feel anything in her breast. No trauma or infection in the breast. She had had bilateral breast biopsies which were all negative for cancer. An attempt at core biopsy on 7118 the area of concern could not be identified. A stereotactic biopsy was also attempted and this was unsuccessful. The patient was therefore recommended to have repeat radiograph of the right breast in 6 months. Patient has not noted any lumps masses or nodules in the right breast. She is not complaining of any nipple discharge. She is not complaining of any pain in the breast. [place] [address]. The breast is noted to be dense no suspicious abnormalities noted. Previous central posterior depth asymmetry has resolved. Routine screening of both breasts in 6 months is recommended. 07-14-21 [place] [address]. This was felt to be benign BIRADS 2. Breast tissue was very dense but no discrete dominant masses or nodules of concern were noted. The patient was recommended to undergo ultrasound with her mammogram on the next evaluation. The patient does not feel any lumps masses or nodules of concern in either breast. The patient is not complaining of any trauma or infection in the breast. She is not complaining of any nipple discharge or skin changes of the breast. Family History: 1. brother: lung cancer 2. mother: lung cancer 3. son: of lung cancer at 2019 Hormonal History: menarche: 15 , raised 7, first child born at 17, breast fed: no menopause: hysterectomy at 33, did not take ovaries BCP: 10 years hormones: 15 years, off for 15 years Past Surgical History: 1. rotator cuff 2. gallbladder 3. hiatal hernia 4. tonsil 5. breast biopsy bilateral 6. dental implants bone removed from hip Past Medical History: 1. hypothyroid 2. rosacia 3. dry eyes 4. flonase for allergies 5. heart flutter on metoprolol Social History: smoke:none, second hand smoke smoked but stopped 30 years ago alcohol: none drugs: none - Constitutional Constitutional: Reports sweats - EENT Comment: vertigo glasses Eyes: denies blurred vision, denies pain Ears: deny: decreased hearing, tinnitus Ears, nose, mouth and throat: Denies headache, Denies sore throat - Breasts Breasts: bilateral: as per HPI - Cardiovascular Cardiovascular: Denies chest pain, Denies shortness of breath - Respiratory Respiratory: Denies cough, - Gastrointestinal Gastrointestinal: Denies abdominal pain, Denies diarrhea, Denies nausea, Denies vomiting - Genitourinary (Female) Genitourinary: Denies dysuria, Denies hematuria - Menstruation Menstruation: Reports post hysterectomy - Musculoskeletal Comment: arthritis - Integumentary Comment: rosacia - Neurological Neurological: Denies numbness, Denies weakness - Psychiatric Psychiatric: Denies anxiety, Denies depression - Endocrine Comment: hypothyroid - Hematologic/Lymphatic Comment: none - Allergic/Immunologic Allergic/Immunologic: Reports as per HPI, Reports seasonal allergies Objective - Vital Signs Vital signs: Vital Signs Temp 98.2 F 07/14/21 16:04 Pulse 63 07/14/21 16:04 Resp 12 07/14/21 16:04 BP 135/84 07/14/21 16:04 Pulse Ox 98 07/14/21 16:04 Intake & Output 07/13/21 07/14/21 07/14/21 18:59 06:59 18:59 Weight 53.524 kg - Exam BMI 22.3 - Constitutional General appearance: Present: cooperative - EENT Eyes: Present: EOMI ENT: Present: hearing grossly normal - Neck Neck: Present: normal ROM - Respiratory Respiratory: bilateral: CTA - Cardiovascular Rhythm: regular Heart sounds: normal: S1, S2 - Gastrointestinal General gastrointestinal: Present: soft - Integumentary Integumentary: Present: normal turgor - Musculoskeletal Musculoskeletal: Present: gait normal - Psychiatric Psychiatric: Present: A&O x's 3, appropriate affect, intact judgment & insight - Additional findings Additional findings: Breast Exam: BRA: 36B inspection: Bilateral grade 2 ptosis Palpation: Right breast: Multi-positional exam fibrocystic changes no dominant masses or nodules of concern Right axilla: No adenopathy of concern Left breast: Well-healed scar from prior surgery, no dominant masses or nodules of concern a multi-positional exam Left axilla: No adenopathy of concern Assessment and Plan Assessment: Impression: 1. hypothyroid 2. rosacia 3. dry eyes 4. flonase for allergies 5. heart flutter on metoprolol 6. fibrocystic breast disease Plan: Repeat bilateral mammogram in 1 year as well as repeat bilateral ultrasound 2. Patient follow-up sooner for any questions or concerns CC: Dfr. Nguyen
== END ==
LOC: WWCWWP 15:40
PROVIDERS: ATTEND Surgery
DX: N60.11 Diffuse cystic mastopathy of right breast (principal); I48.92 Unspecified atrial flutter; E03.9 Hypothyroidism, unspecified; H04.129 Dry eye syndrome of unspecified lacrimal gland; Z88.8 Allergy status to other drugs, medicaments and biological substances; Z88.5 Allergy status to narcotic agent; Z88.2 Allergy status to sulfonamides

== ENCOUNTER → 2022-08-23 | Outpatient (CLI) | payer MEDICARE ==
--- NOTE | 2022-08-24 08:42 | CT ---
EXAMINATION TYPE: CT abdomen pelvis wo con CT DLP: 296.9 mGycm, Automated exposure control for dose reduction was used. DATE OF EXAM: 08/23/2022 6:46 PM COMPARISON: CT abdomen pelvis most recent from 12/21/2020. CLINICAL INDICATION:Female, 77 years old with history of R10.9 UNSPECIFIED ABDOMINAL PAIN; Chronic UT I's TECHNIQUE: Axial CT of the abdomen and pelvis. Sagittal and coronal reformats were created on a [employer] workstation. Contrast used: None Oral contrast used: with Oral Contrast FINDINGS: LOWER CHEST: There is a small pericardial effusion. Trace left pleural effusion. ABDOMEN LIVER: Unremarkable GALLBLADDER AND BILE DUCTS: The gallbladder is surgically absent. PANCREAS: Unremarkable. SPLEEN: Unremarkable. ADRENAL GLANDS: Unremarkable. KIDNEYS AND URETERS: Right nonobstructing renal calculi. No evidence of hydronephrosis. PELVIS BLADDER: Unremarkable REPRODUCTIVE: The uterus is surgically absent. ABDOMEN & PELVIS STOMACH AND BOWEL: No evidence of bowel obstruction. Small hiatal hernia. Few scattered clonic divert icula. PERITONEUM: No evidence of pneumoperitoneum or free fluid. VASCULATURE: No evidence of aortic aneurysm. Scattered atherosclerosis of the arterial vasculature. MUSCULOSKELETAL: No acute osseous abnormalities, multilevel disc degeneration changes with Schmorl's nodes and disc space narrowing. Slight scoliosis changes noted LYMPH NODES: No gross evidence for lymphadenopathy. SOFT TISSUE/ABDOMINAL WALL: Left inguinal fat-containing hernia. IMPRESSION: 1. No evidence of acute abdominal process. 2. New Small pericardial effusion. 3. New Trace left pleural effusion. 4. Small hiatal hernia. 5. Left fat-containing inguinal hernia. 6. Right nonobstructing renal calculi. 7. Colonic diverticulosis.
== END | disposition home or self-care (01) ==
LOC: RADCTMAIN 16:03
PROVIDERS: ATTEND Family Medicine
DX: I31.39 Other pericardial effusion (noninflammatory) (principal); J90 Pleural effusion, not elsewhere classified; K44.9 Diaphragmatic hernia without obstruction or gangrene; K40.90 Unilateral inguinal hernia, without obstruction or gangrene, not specified as recurrent; N20.0 Calculus of kidney; K57.30 Diverticulosis of large intestine without perforation or abscess without bleeding
CPT/HCPCS: 74176; Q9967

== ENCOUNTER → 2022-09-06 | Outpatient (CLI) | payer MEDICARE ==
--- NOTE | 2022-09-06 15:18 | XR ---
EXAMINATION TYPE: XR chest 2V DATE OF EXAM: 09/06/2022 COMPARISON: Chest x-ray August 26, 2011 HISTORY: Pleural effusion. TECHNIQUE: Frontal and lateral views of the chest are obtained. FINDINGS: There is a small left pleural effusion. No suspicious focal air space opacity or pneumotho rax seen bilaterally. The cardiac silhouette size is stable and within normal limits. Cholecystectom y clips are seen on lateral view. The osseous structures are intact. IMPRESSION: Small left pleural effusion.
== END | disposition home or self-care (01) ==
LOC: RADXRMAIN 14:50
PROVIDERS: ATTEND Family Medicine
DX: J90 Pleural effusion, not elsewhere classified (principal)
CPT/HCPCS: 71046

== ENCOUNTER → 2022-10-06 | Outpatient (CLI) | payer MEDICARE ==
--- NOTE | 2022-10-06 12:00 | BD ---
EXAMINATION TYPE: Axial Bone Density DATE OF EXAM: 10/06/2022 COMPARISON: 06-15-20 CLINICAL HISTORY: 77 years year old Female. ICD-10 CODE: M85.819 oth disorders bne density/structure Height: 60IN Weight: 118LB FRAX RISK QUESTIONS: History of Fracture in Adulthood: YES Secondary Osteoporosis: YES 3. Menopause before 45: YES RISK FACTORS HISTORY OF: Surgery to Hip (left)/Wrist (right/left): BONE GRAFT ON LEFT HIP, CYSTS REMOVED SOPHIA WRISTS When: 19 YEARS AGO Family History of Osteoporosis: YES Active: YES Postmenopausal woman: YES Take estrogen and/or progesterone medications: YES, NONE CURRENT How long: ABOUT 10 YEARS Lost more than 2 inches in height since high school: NO MEDICATIONS: Thyroid Medications: Which medication: Levothyroxine How Lon YEARS Additional Medications: CARDIAC MED, VITAMIN D Additional History: FOOT FX OVER 10 YEARS AGO EXAM MEASUREMENTS: Bone mineral densitometry was performed using the [employer] System. Bone mineral density as measured about the Lumbar spine is: ----- L1-L4(G/cm2): 1.179 T Score Values are as follows: ----- L1: -0.5 ----- L2: 0.0 ----- L3: 0.0 ----- L4: 0.2 ----- L1-L4: 0.0 Bone mineral density has: Decreased -1.8% since study of: 06-15-20 Bone mineral density about the R hip (g/cm2): 0.821 Bone mineral density about the L hip (g/cm2): 0.786 T Score values are as follows: -----R Neck: -1.6 -----L Neck: -1.8 -----R Total: -1.5 -----L Total: -1.8 Bone mineral density has: Decreased -6.0% since study of: 06-15-20 FRAX%s: The graph provided illustrates a 18.9% chance for a major osteoporotic fx and a 4.5% chance f or the hips probability for fx in 10 years time. IMPRESSION: Osteopenia (T Score between -2.5 and -1) remains present. There is slightly increased risk of fracture and the patient may be considered for treatment. Re-Screen 2-5 years. NOTE: T-SCORE=SD OF THE YOUNG ADULT MEAN.
== END | disposition home or self-care (01) ==
LOC: RADBDWWP 10:26
PROVIDERS: ATTEND Family Medicine
DX: M85.89 Other specified disorders of bone density and structure, multiple sites (principal); Z78.0 Asymptomatic menopausal state
CPT/HCPCS: 77080

== ENCOUNTER → 2022-11-17 | Outpatient (CLI) | payer MEDICARE ==
[~2022-11-17] MED LIST changes: +DENOSUMAB 60 MG/ML 1 ML SYRINGE SQ ONE; -LACTATED RINGERS 1,000 ML IV SCH
[2022-11-17 13:37] VITALS: BP 144/80; PULSE 60; RESP 16; TEMP 97.3
== END ==
LOC: PROCWHC3 13:10
PROVIDERS: ATTEND Family Medicine
DX: M81.0 Age-related osteoporosis without current pathological fracture (principal); Z88.5 Allergy status to narcotic agent; Z88.2 Allergy status to sulfonamides
CPT/HCPCS: 96372; J0897

== ENCOUNTER → 2023-05-31 | Outpatient (CLI) | payer MEDICARE ==
--- NOTE | 2023-05-31 12:50 | XR ---
EXAMINATION TYPE: XR cervical spine 3 views limited DATE OF EXAM: 05/31/2023 Comparison: None Clinical History: 77-year-old female chronic neck pain, worse on the right side, M54.12 Findings: Uncovertebral joint and facet arthropathy mid to lower cervical spine. Mild to moderate degenerative disc disease particularly C5-C7 levels. No predental space widening or prevertebral soft tissue swell ing. Alignment is maintained. Normal odontoid view. Impression: Moderate spondylotic changes mid to lower cervical spine. No prevertebral soft tissue swelling or mal alignment.
== END | disposition home or self-care (01) ==
LOC: RADXRMAIN 10:30
PROVIDERS: ATTEND Family Medicine
DX: M47.22 Other spondylosis with radiculopathy, cervical region (principal)
CPT/HCPCS: 72040

== ENCOUNTER → 2023-06-19 | Outpatient (CLI) | payer MEDICARE ==
--- NOTE | 2023-06-20 13:42 | MM ---
Reason for Exam: Screening (asymptomatic). Last screening mammogram was performed 12 month(s) ago. Patient History: Menarche at age 15. First Full-Term at age 17. Hysterectomy at age 34. Postmenopausal. Patient used Estrogen for 15 years. Patient used Hormonal Contraceptives for 20 years. Excisional Biopsy on the Left side. 04/28/2019, MG discontinued stereo core RT on the right side. 04/28/2019, US discontinued breast bx RT on the right side. Risk Values: Maryjane 5 year model risk: 1.4%. NCI Lifetime model risk: 2.6%. Prior Study Comparison: 06/15/2020 Bilateral Diagnostic Mammogram, [facility]. 06/17/2021 Bilateral Diagnostic Mammogram, [facility]. 06/19/2022 Bilateral MG 3D diag mammo w/cad SOPHIA, [facility]. Tissue Density: The breast tissue is extremely dense which could obscure a lesion on mammography. Findings: Analyzed By CAD. There is no suspicious group of microcalcifications or new suspicious mass in either breast. Overall Assessment: Benign, BI-RAD 2 Management: Screening Mammogram of both breasts in 1 year. . Patient should continue monthly self-breast exams. A clinical breast exam by your physician is recommended on an annual basis. This exam should not preclude additional follow-up of suspicious palpable abnormalities. Note on Maryjane scores and lifetime risk: 1. A Maryjane score greater than 3% is considered moderate risk. If this is the case, consider specialist referral to assess eligibility for a risk reducing agent. 2. If overall lifetime risk for the development of breast cancer is 20% or higher, the patient may qualify for future screening with alternating mammogram and breast MRI. Electronically signed and approved by: Attila Arrieta M.D. Radiologis
== END | disposition home or self-care (01) ==
LOC: RADMAMWWP 14:50
PROVIDERS: ATTEND Surgery
DX: Z12.31 Encounter for screening mammogram for malignant neoplasm of breast (principal); Z78.0 Asymptomatic menopausal state
CPT/HCPCS: 77063; 77067

== ENCOUNTER → 2023-07-13 | Outpatient (CLI) | payer MEDICARE ==
--- NOTE | 2023-07-13 12:54 | P.PN ---
Subjective Progress Note Date: 07/13/23 Principal diagnosis: Fibrocystic breast changes Fibrocystic breast changes Makenna is a 77-year-old white female with a history of fibrocystic breast changes. She has had bilateral breast biopsies in the past which were negative for cancer. The patient's most recent bilateral mammogram was on . This was benign BIRADS 2. Maryjane risk evaluation revealed 5 year breast cancer risk at 1.4%. Patient has no new lumps masses or nodules of concern in either breast. She is not complaining of any breast pain or nipple discharge. Family History: 1. brother: lung cancer 2. mother: lung cancer 3. son: of lung cancer at 2019 Hormonal History: menarche: 15 , raised 7, first child born at 17, breast fed: no menopause: hysterectomy at 33, did not take ovaries BCP: 10 years hormones: 15 years, off for 15 years Past Surgical History: 1. rotator cuff 2. gallbladder 3. hiatal hernia 4. tonsil 5. breast biopsy bilateral 6. dental implants bone removed from hip Past Medical History: 1. hypothyroid 2. rosacia 3. dry eyes 4. flonase for allergies 5. heart flutter on metoprolol Social History: smoke:none, second hand smoke smoked but stopped 30 years ago alcohol: none drugs: none - Constitutional Constitutional: Reports sweats - EENT Comment: vertigo glasses Eyes: denies blurred vision, denies pain Ears: deny: decreased hearing, tinnitus Ears, nose, mouth and throat: Denies headache, Denies sore throat - Breasts Breasts: bilateral: as per HPI - Cardiovascular Cardiovascular: Denies chest pain, Denies shortness of breath - Respiratory Respiratory: Denies cough, - Gastrointestinal Gastrointestinal: Denies abdominal pain, Denies diarrhea, Denies nausea, Denies vomiting - Genitourinary (Female) Genitourinary: Denies dysuria, Denies hematuria - Menstruation Menstruation: Reports post hysterectomy - Musculoskeletal Comment: arthritis - Integumentary Comment: rosacia - Neurological Neurological: Denies numbness, Denies weakness - Psychiatric Psychiatric: Denies anxiety, Denies depression - Endocrine Comment: hypothyroid - Hematologic/Lymphatic Comment: none - Allergic/Immunologic Allergic/Immunologic: Reports as per HPI, Reports seasonal allergies Objective - Constitutional General appearance: Present: cooperative - EENT Eyes: Present: EOMI ENT: Present: hearing grossly normal - Neck Neck: Present: normal ROM - Respiratory Respiratory: bilateral: CTA - Cardiovascular Rhythm: regular Heart sounds: normal: S1, S2 - Gastrointestinal General gastrointestinal: Present: soft - Integumentary Integumentary: Present: normal turgor - Musculoskeletal Musculoskeletal: Present: gait normal - Psychiatric Psychiatric: Present: A&O x's 3, appropriate affect, intact judgment & insight - Additional findings Additional findings: Breast Exam: BRA: 36B Inspection: bilateral grade 2 ptosis palpation: right breast: Multi-positional exam fibrocystic changes no dominant masses or nodules of concern Right axilla: No adenopathy of concern Left breast: Multi-positional exam fibrocystic changes no dominant masses or nodules of concern Left axilla: No adenopathy of concern Assessment and Plan Assessment: Impression: Bilateral fibrocystic breast changes Bilateral mammogram [id number] BIRAD 2 Plan: Bilateral mammogram in 1 year with physician exam at that time Patient follow-up sooner any questions or concerns CC: Dr. Nguyen
[2023-07-13 15:30] VITALS: BP 150/78; PULSE 61; RESP 16; TEMP 98.2
== END ==
LOC: WWCWWP 12:29
PROVIDERS: ATTEND Surgery
DX: N60.11 Diffuse cystic mastopathy of right breast (principal); N60.12 Diffuse cystic mastopathy of left breast; E03.9 Hypothyroidism, unspecified; Z87.891 Personal history of nicotine dependence; Z88.5 Allergy status to narcotic agent; Z91.013 Allergy to seafood; Z88.2 Allergy status to sulfonamides; Z91.011 Allergy to milk products; Z79.890 Hormone replacement therapy

== ENCOUNTER → 2024-03-12 | Outpatient (CLI) | payer MEDICARE ==
[2024-03-12] MEDS: DENOSUMAB 60 MG/ML 1 ML SYRINGE SQ NR (14:25)
[2024-03-12 14:31] VITALS: BP 138/80; PULSE 70; RESP 16; TEMP 97.5
== END ==
LOC: PROCWHC3 14:18
PROVIDERS: ATTEND Family Medicine
DX: M81.0 Age-related osteoporosis without current pathological fracture (principal)
CPT/HCPCS: 96372; J0897

== ENCOUNTER → 2024-05-22 | Outpatient (CLI) | payer MEDICARE ==
--- NOTE | 2024-05-22 08:34 | XR ---
EXAMINATION TYPE: XR chest 2V DATE OF EXAM: 05/22/2024 COMPARISON: 09/06/2022 HISTORY: Shortness of breath TECHNIQUE: Frontal and lateral views of the chest are obtained. FINDINGS: Scattered senescent parenchymal changes noted. Hyperinflation compatible with COPD. No evidence for infiltrate. No evidence for atelectasis. Heart size is stable. Mediastinal structures are stable and grossly unremarkable. No evidence for hilar prominence. Degenerative changes dorsal spine. IMPRESSION: 1. No evidence for acute pulmonary disease.
== END | disposition home or self-care (01) ==
LOC: RADXRMAIN 08:15
PROVIDERS: ATTEND Family Medicine
DX: R05.9 Cough, unspecified (principal)
CPT/HCPCS: 71046

== ENCOUNTER → 2024-06-26 | Outpatient (CLI) | payer MEDICARE ==
--- NOTE | 2024-07-01 12:53 | MM ---
Reason for Exam: Screening (asymptomatic). Last screening mammogram was performed 12 month(s) ago. Patient History: Menarche at age 15. First Full-Term at age 17. Hysterectomy at age 34. Postmenopausal. Patient used Estrogen for 15 years. Patient used Hormonal Contraceptives for 20 years. Excisional Biopsy on the Left side. 04/28/2019, MG discontinued stereo core RT on the right side. 04/28/2019, US discontinued breast bx RT on the right side. Risk Values: Maryjane 5 year model risk: 1.3%. NCI Lifetime model risk: 2.4%. Prior Study Comparison: 06/17/2021 Bilateral Diagnostic Mammogram, [facility]. 06/19/2022 Bilateral MG 3D diag mammo w/cad SOPHIA, [facility]. 06/19/2023 Bilateral MG 3D screening mammo w/cad, [facility]. Tissue Density: The breasts are extremely dense, which lowers the sensitivity of mammography. Findings: Analyzed By CAD. Asymmetric density upper outer quadrant right breast. Recommend compression Benign-appearing calcifications bilaterally. Overall Assessment: Incomplete: need additional imaging evaluation, BI-RAD 0 Management: Diagnostic Mammogram of the right breast. . Patient should continue monthly self-breast exams. A clinical breast exam by your physician is recommended on an annual basis. This exam should not preclude additional follow-up of suspicious palpable abnormalities. Note on Maryjane scores and lifetime risk: 1. A Maryjane score greater than 3% is considered moderate risk. If this is the case, consider specialist referral to assess eligibility for a risk reducing agent. 2. If overall lifetime risk for the development of breast cancer is 20% or higher, the patient may qualify for future screening with alternating mammogram and breast MRI. Electronically signed and approved by: Edison Quintana M.D. Radiologis
== END | disposition home or self-care (01) ==
LOC: RADMAMWWP 11:14
PROVIDERS: ATTEND Surgery
DX: Z12.31 Encounter for screening mammogram for malignant neoplasm of breast
CPT/HCPCS: 77063; 77067

== ENCOUNTER → 2024-07-09 | Outpatient (CLI) | payer MEDICARE ==
--- NOTE | 2024-07-09 08:16 | MM ---
Reason for Exam: Additional evaluation requested from abnormal screening. Last screening mammogram was performed less than 1 month ago. Patient History: Menarche at age 15. First Full-Term at age 17. Hysterectomy at age 34. Postmenopausal. Patient used Estrogen for 15 years. Patient used Hormonal Contraceptives for 20 years. Excisional Biopsy on the Left side. 04/28/2019, MG discontinued stereo core RT on the right side. 04/28/2019, US discontinued breast bx RT on the right side. Risk Values: Maryjane 5 year model risk: 1.3%. NCI Lifetime model risk: 2.4%. Prior Study Comparison: 06/17/2021 Bilateral Diagnostic Mammogram, [facility]. 06/19/2022 Bilateral MG 3D diag mammo w/cad SOPHIA, [facility]. 06/19/2022 Bilateral US breast BILAT, [facility]. 06/19/2023 Bilateral MG 3D screening mammo w/cad, [facility]. 06/26/2024 Bilateral MG 3D screening mammo w/cad, [facility]. Tissue Density: Right: The breasts are extremely dense, which lowers the sensitivity of mammography. Findings: Analyzed By CAD. Asymmetric density does not persist. No mass or distortion. Overall Assessment: Negative, BI-RAD 1 Management: Screening Mammogram of both breasts in 1 year. . Results were given to the patient verbally at the time of exam. Patient should continue monthly self-breast exams. A clinical breast exam by your physician is recommended on an annual basis. This exam should not preclude additional follow-up of suspicious palpable abnormalities. Note on Maryjane scores and lifetime risk: 1. A Maryjane score greater than 3% is considered moderate risk. If this is the case, consider specialist referral to assess eligibility for a risk reducing agent. 2. If overall lifetime risk for the development of breast cancer is 20% or higher, the patient may qualify for future screening with alternating mammogram and breast MRI. Electronically signed and approved by: Attila Arrieta M.D. Radiologis
== END | disposition home or self-care (01) ==
LOC: RADMAMWWP 07:51
PROVIDERS: ATTEND Surgery
DX: R92.8 Other abnormal and inconclusive findings on diagnostic imaging of breast
CPT/HCPCS: 77061; 77065

== ENCOUNTER → 2024-07-25 | Outpatient (CLI) | payer MEDICARE ==
[2024-07-25 09:03] VITALS: BP 155/82; PULSE 73; RESP 17; TEMP 98
--- NOTE | 2024-07-25 09:32 | P.PN ---
Subjective Progress Note Date: 07/25/24 Principal diagnosis: fibrocystic breast Fibrocystic breast changes Makenna is a 78-year-old white female with a history of fibrocystic breast changes. She has had bilateral breast biopsies in the past which were negative for cancer. The patient's most recent bilateral mammogram was on . This was BIRAD 0 and a diagnostic right breast mammogram was recommended. This was done on 07-09-24 and was BIRD 1. Maryjane risk evaluation revealed 5 year breast cancer risk at 1.3%. Patient has no new lumps masses or nodules of concern in either breast. She is not complaining of any breast pain or nipple discharge. Family History: 1. brother: lung cancer 2. mother: lung cancer 3. son: of lung cancer at 2019 Hormonal History: menarche: 15 , raised 7, first child born at 17, breast fed: no menopause: hysterectomy at 33, did not take ovaries BCP: 10 years hormones: 15 years, off for 15 years Past Surgical History: 1. rotator cuff 2. gallbladder 3. hiatal hernia 4. tonsil 5. breast biopsy bilateral 6. dental implants bone removed from hip Past Medical History: 1. hypothyroid 2. rosacia 3. dry eyes 4. flonase for allergies 5. heart flutter on metoprolol 6. asthma medication Social History: smoke:none, second hand smoke smoked but stopped 30 years ago alcohol: none drugs: none - Constitutional Constitutional: Reports sweats - EENT Comment: vertigo glasses Eyes: denies blurred vision, denies pain Ears: deny: decreased hearing, tinnitus Ears, nose, mouth and throat: Denies headache, Denies sore throat - Breasts Breasts: bilateral: as per HPI - Cardiovascular Cardiovascular: Denies chest pain, Denies shortness of breath - Respiratory Respiratory: Denies cough, - Gastrointestinal Gastrointestinal: Denies abdominal pain, Denies diarrhea, Denies nausea, Denies vomiting - Genitourinary (Female) Genitourinary: Denies dysuria, Denies hematuria - Menstruation Menstruation: Reports post hysterectomy - Musculoskeletal Comment: arthritis - Integumentary Comment: rosacia - Neurological Neurological: Denies numbness, Denies weakness - Psychiatric Psychiatric: Denies anxiety, Denies depression - Endocrine Comment: hypothyroid - Hematologic/Lymphatic Comment: none - Allergic/Immunologic Allergic/Immunologic: Reports as per HPI, Reports seasonal allergies Objective - Vital Signs Vital signs: Vital Signs Temp 98 F 07/25/24 09:00 Pulse 73 07/25/24 09:00 Resp 17 07/25/24 09:00 BP 155/82 07/25/24 09:00 Pulse Ox 96 07/25/24 09:00 FiO2 Intake & Output 07/24/24 07/25/24 07/25/24 18:59 06:59 18:59 Weight 58.967 kg - Constitutional General appearance: Present: cooperative - EENT Eyes: Present: EOMI ENT: Present: hearing grossly normal - Neck Neck: Present: normal ROM - Respiratory Respiratory: bilateral: CTA - Cardiovascular Rhythm: regular Heart sounds: normal: S1, S2 - Integumentary Integumentary: Present: normal turgor - Musculoskeletal Musculoskeletal: Present: gait normal - Psychiatric Psychiatric: Present: A&O x's 3, appropriate affect, intact judgment & insight - Additional findings Additional findings: Breast Exam: BRA: 36B Inspection: bilateral grade 2 ptosis palpation: right breast: Multi-positional exam fibrocystic changes no dominant masses or nodules of concern Right axilla: No adenopathy of concern Left breast: Multi-positional exam fibrocystic changes no dominant masses or nodules of concern Left axilla: No adenopathy of concern Assessment and Plan Assessment: Impression: Bilateral fibrocystic breast changes Bilateral mammogram [id number] recommend right breast diagnostic mammogram done on 07-09-24 BIRAD 1 Plan: Bilateral mammogram in 1 year May 2025 with physician exam at that time Patient follow-up sooner any questions or concerns CC: Dr. Nguyen
== END ==
LOC: WWCWWP 08:30
PROVIDERS: ATTEND Surgery
DX: R92.8 Other abnormal and inconclusive findings on diagnostic imaging of breast (principal); N60.11 Diffuse cystic mastopathy of right breast; N60.12 Diffuse cystic mastopathy of left breast; Z87.891 Personal history of nicotine dependence; Z88.5 Allergy status to narcotic agent; Z91.011 Allergy to milk products; Z88.2 Allergy status to sulfonamides; Z91.013 Allergy to seafood

== ENCOUNTER → 2024-09-16 | Outpatient (CLI) | payer MEDICARE ==
[2024-09-16] MEDS: DENOSUMAB 60 MG/ML 1 ML SYRINGE SQ ONE (14:15)
[2024-09-16 14:22] VITALS: BP 132/76; PULSE 67; RESP 16; TEMP 97.7
== END ==
LOC: PROCWHC3 14:08
PROVIDERS: ATTEND Family Medicine
DX: M81.0 Age-related osteoporosis without current pathological fracture (principal)
CPT/HCPCS: 96372; J0897

== ENCOUNTER → 2024-12-02 | Outpatient (CLI) | payer MEDICARE ==
--- NOTE | 2024-12-02 15:52 | FL ---
EXAMINATION TYPE: FL esophagus cervic/pharynx DATE OF EXAM: 12/02/2024 COMPARISON: None. CLINICAL INDICATION: Female, 79 years old with history of R13.10 DYSPHAGIA, UNSPECIFIED; PHH, patient has history of David fundoplication surgery for hiatal hernia 7 years ago with persistent vomiting since surgery. Had balloon dilatation 3 times without success. Approximately 3-4 months ago she heard a pop and now has now has significant epigastric pain and reflux with vomiting. This improves with m edication. TECHNIQUE: A single contrast esophagram is performed utilizing barium due to history of surgery. A total of 61 seconds of fluoroscopic time was utilized during procedure and 130 images obtained. Tota l dose area product (DAP) in uGy*m?, mGy*cm? (or similar) : n/a. FINDINGS: The esophagus shows predominantly satisfactory motility. There is a small sized fixed hiatal hernia a marcos the diaphragm noted. There is delay in passage of contrast through the diaphragmatic hiatus into the remainder of the stomach. There is then observed abnormal secondary and tertiary contractions of the esophagus along with stasis of contrast and reflux of contrast into the proximal to middle esoph sapna. Eventually a small amount of contrast does pass through the level of the diaphragmatic hiatus i nto the remainder of the stomach. IMPRESSION: Small fixed hiatal hernia. Focal narrowing and delay in passing ingested material at the level of the diaphragm below the fixed small hiatal hernia. Significant reflux was observed above th e diaphragm to proximal esophageal levels. [facility], , 12/02/2024 3:49 PM
== END | disposition home or self-care (01) ==
LOC: RADFLMAIN 14:11
PROVIDERS: ATTEND Surgery Plastic and Reconstructive Surgery
DX: K44.9 Diaphragmatic hernia without obstruction or gangrene (principal); K21.9 Gastro-esophageal reflux disease without esophagitis; R13.10 Dysphagia, unspecified
CPT/HCPCS: 74210

== ENCOUNTER 2025-01-22 10:00 | Day surgery (SDC) | payer MEDICARE ==
[2025-01-20 15:08] VITALS: BMI 24.5
--- NOTE | 2025-01-22 08:40 | P.GSHP ---
History of Present Illness H&P Date: 01/22/25 CHIEF COMPLAINT: GERD HISTORY OF PRESENT ILLNESS: The patient is a 79-year-old female who presents reports gastroesophageal reflux disease. Upper endoscopy was offered for further evaluation and management. PAST MEDICAL HISTORY: Please see list. PAST SURGICAL HISTORY: Please see list. MEDICATIONS: Please see list. ALLERGIES: Please see list. SOCIAL HISTORY: No illicit drug use FAMILY HISTORY: No reports of Crohn disease or ulcerative colitis. REVIEW OF ORGAN SYSTEMS: CONSTITUTIONAL: No reports of fevers or chills. GI: Denies any blood in stools or constipation. PHYSICAL EXAM: VITAL SIGNS: Stable GENERAL: Well-developed and pleasant in no acute distress. HEENT: No scleral icterus. Extraocular movements grossly intact. Moist buccal mucosa. NECK: Supple without lymphadenopathy. CHEST: Unlabored respirations. Equal bilateral excursions. CARDIOVASCULAR: Regular rate and rhythm. Distal 2+ pulses. ABDOMEN: Soft, nondistended. MUSCULOSKELETAL: No clubbing, cyanosis, or edema. ASSESSMENT: 1. Gastroesophageal reflux disease PLAN: 1. Recommend proceeding with an upper endoscopy Past Medical History Past Medical History: GERD/Reflux, Hyperlipidemia, Hypertension, Osteoarthritis (OA), Skin Disorder, Thyroid Disorder Additional Past Medical History / Comment(s): Ongoing trouble with acid reflux. Hx walking pneumonia, Rosacea, varicose veins, hx "PRE" skin cancer, "heart flutters," H Pylori, Vertigo. History of Any Multi-Drug Resistant Organisms: None Reported Past Surgical History: Section, Cholecystectomy, Hysterectomy, Ortho pedic Surgery Additional Past Surgical History / Comment(s): Section X4, right rotator cuff repair, ABHI FUNDLOPLASTY, EGD with dilatation, left knee surgery, colonocopies. Past Anesthesia/Blood Transfusion Reactions: No Reported Reaction, Motion Sickness Smoking Status: Never smoker - Past Family History Mother Family Medical History: Cancer Brother(s) Family Medical History: Cancer Medications and Allergies Home Medications Medication Instructions Recorded Confirmed Type cycloSPORINE [Restasis] 1 drop BOTH EYES BID 06/08/16 01/20/25 History Cyanocobalamin (Vitamin B-12) 5,000 mcg PO DAILY 08/06/17 01/20/25 History [Vitamin B12] Fluticasone Nasal [place] [Flonase 1 spray EA NOSTRIL BID PRN 08/06/17 01/20/25 History Nasal [place]] Multivitamins, Thera [Multivitamin 1 tab PO DAILY 08/06/17 01/20/25 History (formulary)] Cholecalciferol [Vitamin D3 (25 1,000 units PO DAILY 04/08/19 01/20/25 History Mcg = 1000 Iu)] Levothyroxine Sodium 88 mcg PO QAM 04/08/19 01/20/25 History Metoprolol Tartrate [Lopressor] 25 mg PO HS 12/12/19 01/20/25 History Meclizine [Antivert] 25 mg PO TID PRN 02/22/21 01/20/25 History Albuterol Sulfate [Albuterol 1 - 2 puff INHALATION DIRECTED 01/20/25 01/20/25 History Sulfate Hfa] PRN Ezetimibe [Zetia] 10 mg PO QAM 01/20/25 01/20/25 History Fluticasone Furoate [Arnuity 1 puff INHALATION QAM 01/20/25 01/20/25 History Ellipta] Irbesartan 150 mg PO QAM 01/20/25 01/20/25 History Pantoprazole [Protonix] 40 mg PO QAM 01/20/25 01/20/25 History Allergies Allergy/AdvReac Type Severity Reaction Status Date / Time codeine Allergy Rash/Hives Verified 01/20/25 14:48 Milk Containing Products AdvReac Nausea Verified 01/20/25 14:48 (Dairy) [Dairy] shellfish derived [Shellfish] AdvReac Vomiting Verified 01/20/25 14:48 Sulfa (Sulfonamide AdvReac Vomiting Verified 01/20/25 14:48 Antibiotics)
[~2025-01-22 10:00] MED LIST changes: -DENOSUMAB 60 MG/ML 1 ML SYRINGE SQ ONE; +LIDOCAINE 1% (10MG/ML) FOR IV START INTRADERMA PRN; +ONDANSETRON 4 MG/2 ML VIAL IVP PRN
[2025-01-22 10:31] VITALS: TEMP 97.8
[2025-01-22] MEDS: LACTATED RINGERS 1,000 ML IV SCH (10:34)
[2025-01-22] MEDS: IV FLUID CONTINUATION 1,000 ML IV ONE ×2 (10:40→10:52)
[2025-01-22] MEDS ORDERED: LIDOCAINE 1% INJ 10MG/ML (20 ML MDV) ONE (10:54)
[2025-01-22] MEDS ORDERED: PROPOFOL 10 MG/ML 20 ML VIAL IV ONE (10:54)
[2025-01-22 11:39] VITALS: BP 123/85; PULSE 75; RESP 18
--- NOTE | 2025-01-22 11:57 | P.PCN ---
Date of Procedure: 01/22/25 Description of Procedure: PREOPERATIVE DIAGNOSIS: Gastroesophageal reflux disease Dysphagia History of hiatal hernia repair POSTOPERATIVE DIAGNOSIS: Recurrent diaphragmatic hiatal hernia Gastritis Esophageal stenosis Gastroesophageal reflux disease with erosive esophagitis OPERATION: Esophagogastroduodenoscopy with rigid dilator over the guidewire 5 Fr with dilation Esophagogastroduodenoscopy with cold forceps biopsies stomach/antrum, esophagus, duodenum SURGEON: Erin Ervin MD ANESTHESIA: MAC. INDICATIONS: The patient is a 79-year-old female who presents with a history of gastroesophageal reflux disease and dysphagia. Benefits and risks of the procedure were described. Informed consent was obtained. DESCRIPTION: The patient was brought into the endoscopy suite and laid in the left lateral decubitus position. After a timeout was confirmed, the procedure was initiated. An Olympus gastroscope was passed into the posterior oropharynx where an upper esophageal stenosis was identified. The scope was passed down to the distal esophagus. To address the upper esophageal stenosis, rigid dilator over guidewire was selected. Next using an [place] rigid dilator, a guidewire was placed through the gastroscope. Next the scope was withdrawn. A 51-Samoan rigid [place] dilator was passed carefully along the posterior oropharynx to 45 cm and left in place for 2-3 minutes stretch. The dilator was withdrawn including the guidewire. The scope was reentered along the posterior oropharynx with no findings of full- thickness tear of the upper esophageal sphincter. Additional findings below. Within the stomach, gastritis without gastric ulcerations were identified along the body of the stomach with cold forceps biopsies obtained. The lower esophageal valve was evaluated with Hill grade 2 lower esophageal valve. LA grade B erosive esophagitis was identified. No full-thickness injury was encountered. The GI tract was desufflated. The patient tolerated the procedure well. FINDINGS: Upper esophageal stenosis dilated 51-Samoan rigid dilator Diaphragmatic hiatus at 34 cm from the incisors Squamocolumnar junction 38 cm from the incisors. Diaphragmatic hiatal hernia 4 cm, sliding-type Distal fundoplasty with partial failure Gastritis along the gastric body and fundus cold forceps biopsies obtained No acute gastric ulcerations identified. Duodenum with mild duodenitis with biopsies obtained LA grade B erosive esophagitis with biopsies obtained Hill grade 2 lower esophageal valve. RECOMMENDATIONS: Omeprazole 40 mg daily Upper endoscopy as needed Plan - Discharge Summary Discharge Rx Participant: No New Discharge Prescriptions: No Action cycloSPORINE [Restasis] 1 drop BOTH EYES BID Fluticasone Nasal [place] [Flonase Nasal [place]] 1 spray EA NOSTRIL BID PRN PRN Reason: Allergy Symptoms Multivitamins, Thera [Multivitamin (formulary)] 1 tab PO DAILY Cyanocobalamin (Vitamin B-12) [Vitamin B12] 5,000 mcg PO DAILY Cholecalciferol [Vitamin D3 (25 Mcg = 1000 Iu)] 1,000 units PO DAILY Levothyroxine Sodium 88 mcg PO QAM Metoprolol Tartrate [Lopressor] 25 mg PO HS Meclizine [Antivert] 25 mg PO TID PRN PRN Reason: Vertigo Irbesartan 150 mg PO QAM Albuterol Sulfate [Albuterol Sulfate Hfa] 1 - 2 puff INHALATION DIRECTED PRN PRN Reason: Shortness Of Breath Pantoprazole [Protonix] 40 mg PO QAM Ezetimibe [Zetia] 10 mg PO QAM Fluticasone Furoate [Arnuity Ellipta] 1 puff INHALATION QAM Discharge Medication List cycloSPORINE [Restasis] 1 drop BOTH EYES BID 06/08/16 [History] Cyanocobalamin (Vitamin B-12) [Vitamin B12] 5,000 mcg PO DAILY 08/06/17 [History] Fluticasone Nasal [place] [Flonase Nasal [place]] 1 spray EA NOSTRIL BID PRN 08/06/17 [History] Multivitamins, Thera [Multivitamin (formulary)] 1 tab PO DAILY 08/06/17 [History] Cholecalciferol [Vitamin D3 (25 Mcg = 1000 Iu)] 1,000 units PO DAILY 04/08/19 [History] Levothyroxine Sodium 88 mcg PO QAM 04/08/19 [History] Metoprolol Tartrate [Lopressor] 25 mg PO HS 12/12/19 [History] Meclizine [Antivert] 25 mg PO TID PRN 02/22/21 [History] Albuterol Sulfate [Albuterol Sulfate Hfa] 1 - 2 puff INHALATION DIRECTED PRN 01/20/25 [History] Ezetimibe [Zetia] 10 mg PO QAM 01/20/25 [History] Fluticasone Furoate [Arnuity Ellipta] 1 puff INHALATION QAM 01/20/25 [History] Irbesartan 150 mg PO QAM 01/20/25 [History] Pantoprazole [Protonix] 40 mg PO QAM 01/20/25 [History]
== END 2025-01-22 12:43 | disposition home or self-care (01) ==
LOC: ORWHC2ENDO 10:00
PROVIDERS: ATTEND Surgery Plastic and Reconstructive Surgery
DX: K29.50 Unspecified chronic gastritis without bleeding (principal); K21.00 Gastro-esophageal reflux disease with esophagitis, without bleeding; K22.2 Esophageal obstruction; K44.9 Diaphragmatic hernia without obstruction or gangrene; M19.90 Unspecified osteoarthritis, unspecified site; I10 Essential (primary) hypertension; E78.5 Hyperlipidemia, unspecified; E07.9 Disorder of thyroid, unspecified; Z85.828 Personal history of other malignant neoplasm of skin; Z79.899 Other long term (current) drug therapy; Z88.1 Allergy status to other antibiotic agents; Z88.2 Allergy status to sulfonamides; Z90.49 Acquired absence of other specified parts of digestive tract; Z90.710 Acquired absence of both cervix and uterus; Z98.890 Other specified postprocedural states; Z79.890 Hormone replacement therapy
CPT/HCPCS: 88305; 88342; 43239; 43248; J2003; J2704

== ENCOUNTER 2025-04-09 07:58 | Day surgery (SDC) | payer MEDICARE ==
[2025-04-07 14:59] VITALS: BMI 24.5
--- NOTE | 2025-04-09 07:37 | P.GSHP ---
History of Present Illness H&P Date: 04/09/25 CHIEF COMPLAINT: GERD and dysphagia HISTORY OF PRESENT ILLNESS: The patient is a 79-year-old female who presents reports gastroesophageal reflux disease and dysphagia. Upper endoscopy was offered for further evaluation and management. PAST MEDICAL HISTORY: Please see list. PAST SURGICAL HISTORY: Please see list. MEDICATIONS: Please see list. ALLERGIES: Please see list. SOCIAL HISTORY: No illicit drug use FAMILY HISTORY: No reports of Crohn disease or ulcerative colitis. REVIEW OF ORGAN SYSTEMS: CONSTITUTIONAL: No reports of fevers or chills. GI: Denies any blood in stools or constipation. PHYSICAL EXAM: VITAL SIGNS: Stable GENERAL: Well-developed and pleasant in no acute distress. HEENT: No scleral icterus. Extraocular movements grossly intact. Moist buccal mucosa. NECK: Supple without lymphadenopathy. CHEST: Unlabored respirations. Equal bilateral excursions. CARDIOVASCULAR: Regular rate and rhythm. Distal 2+ pulses. ABDOMEN: Soft, nondistended. MUSCULOSKELETAL: No clubbing, cyanosis, or edema. ASSESSMENT: 1. Gastroesophageal reflux disease 2. Dysphagia PLAN: 1. Recommend proceeding with an upper endoscopy Past Medical History Past Medical History: GERD/Reflux, Hyperlipidemia, Hypertension, Osteoarthritis (OA), Skin Disorder, Thyroid Disorder Additional Past Medical History / Comment(s): "Severe acid reflex since scope done and hernia repair coming loose",Ongoing trouble with acid reflux. Hx walking pneumonia, Rosacea, varicose veins, hx "PRE" skin cancer, "heart flutters," H Pylori, Vertigo. History of Any Multi-Drug Resistant Organisms: None Reported Past Surgical History: Section, Cholecystectomy, Hysterectomy, Orthopedic Surgery Additional Past Surgical History / Comment(s): Section X4, right rotator cuff repair, ABHI FUNDLOPLASTY, EGD with dilatation, left knee surgery, colonocopies. Past Anesthesia/Blood Transfusion Reactions: No Reported Reaction, Motion Sickness Smoking Status: Never smoker - Past Family History Mother Family Medical History: Cancer Brother(s) Family Medical History: Cancer Medications and Allergies Home Medications Medication Instructions Recorded Confirmed Type cycloSPORINE [Restasis] 1 drop BOTH EYES BID 06/08/16 04/07/25 History Multivitamins, Thera [Multivitamin 1 tab PO DAILY 08/06/17 04/07/25 History (formulary)] Cholecalciferol [Vitamin D3 (25 25 mcg PO DAILY 04/08/19 04/07/25 History Mcg = 1000 Iu)] Levothyroxine Sodium 88 mcg PO QAM 04/08/19 04/07/25 History Metoprolol Tartrate [Lopressor] 25 mg PO HS 12/12/19 04/07/25 History Meclizine [Antivert] 25 mg PO TID PRN 02/22/21 04/07/25 History Albuterol Sulfate [Albuterol 1 - 2 puff INHALATION DIRECTED 01/20/25 04/07/25 History Sulfate Hfa] PRN Ezetimibe [Zetia] 10 mg PO QAM 01/20/25 04/07/25 History Fluticasone Furoate [Arnuity 1 puff INHALATION QAM 01/20/25 04/07/25 History Ellipta] Irbesartan 150 mg PO QAM 01/20/25 04/07/25 History Azelastine HCl [Astepro] 1 spray NASAL DAILY 04/07/25 04/07/25 History Cetirizine HCl 10 mg PO QAM 04/07/25 04/07/25 History Pantoprazole Sodium [Protonix] 40 mg PO HS 04/07/25 04/07/25 History Vitamin C/Biotin [Hair, Skin and 1 tab PO DAILY 04/07/25 04/07/25 History Nails Chew] Allergies Allergy/AdvReac Type Severity Reaction Status Date / Time codeine Allergy Rash/Hives Verified 04/07/25 14:44 Milk Containing Products AdvReac Nausea Verified 04/07/25 14:44 (Dairy) [Dairy] shellfish derived [Shellfish] AdvReac Vomiting Verified 04/07/25 14:44 Sulfa (Sulfonamide AdvReac Vomiting Verified 04/07/25 14:44 Antibiotics)
[2025-04-09 08:24] VITALS: TEMP 97.5
[2025-04-09] MEDS: LACTATED RINGERS 1,000 ML IV SCH (08:36)
[2025-04-09] MEDS: IV FLUID CONTINUATION 1,000 ML IV ONE (08:37)
[2025-04-09] MEDS ORDERED: PROPOFOL 10 MG/ML 20 ML VIAL IV ONE (08:56)
[2025-04-09] MEDS ORDERED: LIDOCAINE 1% INJ 10MG/ML (20 ML MDV) ONE (08:56)
[2025-04-09 09:42] VITALS: RESP 16
[2025-04-09 10:05] VITALS: BP 147/82; PULSE 65
--- NOTE | 2025-04-09 10:11 | P.PCN ---
Date of Procedure: 04/09/25 Description of Procedure: PREOPERATIVE DIAGNOSIS: Dysphagia. POSTOPERATIVE DIAGNOSIS: Dysphagia. History of hypertensive upper esophageal sphincter. Diaphragmatic hiatal hernia OPERATION: Esophagogastroduodenoscopy rigid Ethiopian dilator 54 Fr, upper esophageal sphincter. SURGEON: Erin Ervin MD ANESTHESIA: MAC. INDICATIONS: The patient is a 79-year-old female who presents with dysphagia. She reports troubles with swallowing pills along her upper throat. Upper endoscopy was offered for further diagnostic evaluation and treatment. DESCRIPTION: The patient was brought into the endoscopy suite and laid in the left lateral decubitus position. An Olympus gastroscope was carefully passed along the posterior oropharynx. Upon entry into the proximal esophagus, a mild stricture was identified consistent with hypertensive upper esophageal sphincter. No erosion were found along the distal esophagus or ulcerations. The stomach was entered. The scope was passed to the second portion and third portion of the duodenum was unremarkable. Retroflexion of the scope confirmed Hill grade 3 lower esophageal valve without recurrent diaphragmatic hiatal hernia. A guidewire was placed through the scope into the stomach. The scope was removed. A 54-L[place]ish rigid dilator was placed to 45 cm from the incisors. The dilator was left in place between 2-3 minutes. The dilator and guidewire were removed. The scope was reentered along the proximal esophagus whereby the stricture had resolved of the upper esophagus. No full-thickness injury was found along the mucosa. The stomach was desufflated. The patient tolerated the procedure well. FINDINGS: Squamocolumnar junction 33 cm from the incisors. Diaphragmatic hiatus at 37 cm. Diaphragmatic hiatal hernia 4 cm Hill grade 3 lower esophageal valve. LA grade B erosive esophagitis. Hypertensive upper esophageal sphincter dilated to 54 [place]bourgish RECOMMENDATIONS: Upper endoscopy as needed. May benefit from hiatal hernia repair due to persistent reflux disease despite antiacid therapy Plan - Discharge Summary Discharge Rx Participant: No New Discharge Prescriptions: Continue cycloSPORINE [Restasis] 1 drop BOTH EYES BID Multivitamins, Thera [Multivitamin (formulary)] 1 tab PO DAILY Cholecalciferol [Vitamin D3 (25 Mcg = 1000 Iu)] 25 mcg PO DAILY Levothyroxine Sodium 88 mcg PO QAM Metoprolol Tartrate [Lopressor] 25 mg PO HS Meclizine [Antivert] 25 mg PO TID PRN PRN Reason: Vertigo Irbesartan 150 mg PO QAM Albuterol Sulfate [Albuterol Sulfate Hfa] 1 - 2 puff INHALATION DIRECTED PRN PRN Reason: Shortness Of Breath Vitamin C/Biotin [Hair, Skin and Nails Chew] 1 tab PO DAILY Pantoprazole Sodium [Protonix] 40 mg PO HS Cetirizine HCl 10 mg PO QAM Ezetimibe [Zetia] 10 mg PO QAM Fluticasone Furoate [Arnuity Ellipta] 1 puff INHALATION QAM Azelastine HCl [Astepro] 1 spray NASAL DAILY Discharge Medication List cycloSPORINE [Restasis] 1 drop BOTH EYES BID 06/08/16 [History] Multivitamins, Thera [Multivitamin (formulary)] 1 tab PO DAILY 08/06/17 [History] Cholecalciferol [Vitamin D3 (25 Mcg = 1000 Iu)] 25 mcg PO DAILY 04/08/19 [History] Levothyroxine Sodium 88 mcg PO QAM 04/08/19 [History] Metoprolol Tartrate [Lopressor] 25 mg PO HS 12/12/19 [History] Meclizine [Antivert] 25 mg PO TID PRN 02/22/21 [History] Albuterol Sulfate [Albuterol Sulfate Hfa] 1 - 2 puff INHALATION DIRECTED PRN 01/20/25 [History] Ezetimibe [Zetia] 10 mg PO QAM 01/20/25 [History] Fluticasone Furoate [Arnuity Ellipta] 1 puff INHALATION QAM 01/20/25 [History] Irbesartan 150 mg PO QAM 01/20/25 [History] Azelastine HCl [Astepro] 1 spray NASAL DAILY 04/07/25 [History] Cetirizine HCl 10 mg PO QAM 04/07/25 [History] Pantoprazole Sodium [Protonix] 40 mg PO HS 04/07/25 [History] Vitamin C/Biotin [Hair, Skin and Nails Chew] 1 tab PO DAILY 04/07/25 [History] Follow up Appointment(s)/Referral(s): Erin Ervin MD [STAFF PHYSICIAN] - 05/05/25 2:00 pm Patient Instructions/Handouts: Esophageal Dilation (GEN) Activity/Diet/Wound Care/Special Instructions: Salt water gargle twice daily for 2 days. Avoid sharp foods such as crackers for the next 2 days. Discharge Disposition: HOME SELF-CARE
== END 2025-04-09 10:27 | disposition home or self-care (01) ==
LOC: ORWHC2ENDO 07:58
PROVIDERS: ATTEND Surgery Plastic and Reconstructive Surgery
DX: K22.2 Esophageal obstruction (principal); K21.00 Gastro-esophageal reflux disease with esophagitis, without bleeding; K22.4 Dyskinesia of esophagus; K44.9 Diaphragmatic hernia without obstruction or gangrene; I10 Essential (primary) hypertension; E78.5 Hyperlipidemia, unspecified; J45.909 Unspecified asthma, uncomplicated; Z79.890 Hormone replacement therapy; Z79.899 Other long term (current) drug therapy; Z88.5 Allergy status to narcotic agent; Z88.2 Allergy status to sulfonamides; Z91.011 Allergy to milk products; Z91.013 Allergy to seafood
CPT/HCPCS: 43248; J2003; J2704